=== PATIENT | male | born 1965 | race African-American/Black ===

== ENCOUNTER 2016-09-18 00:41 | Inpatient (IN) ==
--- NOTE | 2016-09-18 01:29 | Emergency Department Note ---
ILucie Emily, am scribing for, and in the presence of, Re Schmidt DO 01:27. IBrayan Debra, DO, personally performed the services described in this documentation, ascribed by Inga Faulkner in my presence, and it is both accurate and complete . Arrival - Arrival Chief Complaint: Upper Respiratory Stated Complaint: sob ED Nursing Triage Note: PT STATES HE CAN HARDLY BREATH WITH CHEST CONGESTION AND COUGHING UP BLOOD-TINGED MUCOUS. HAS TAKEN MUCINEX AND DENISE SELTZER WITH NO RELIEF. UNABLE TO KEEP FOOD DOWN Mode of Arrival: Ambulatory Limitations: No Limitations Source: Patient - History of Present Illness HPI Narrative: Pt is a 51 y/o male who came to ED with c/o chest congestion, cough, SOB that started 3 days ago. Pt notes he had same sxs last week but "broke over the weekend" and started back this week. Pt reports he works at [employer] in [place], [place]. Pt's BP in ED is 201/129, in which he is HTN and is compliant with medication. No other complaint/pain in ED. Onset (ago): day(s) Consistency: constant Severity: mild, moderate Severity scale (1-10): 5 Quality: aching Allergies/Adverse Reactions: Allergies Allergy/AdvReac Type Severity Reaction Status Date / Time No Known Allergies Allergy Unverified 10/14/15 05:05 Home Medications: Home Medications Medication Instructions Recorded Confirmed Type Aspirin Tab 325 mg PO DAILY tablet 10/22/15 Rx Carvedilol [Coreg] 25 mg PO BID W/MEALS #60 tablet 10/22/15 Rx Furosemide Tab [Lasix Tab] 40 mg PO BID DIURETIC #60 tablet 10/22/15 Rx Insulin NPH/Regular 70/30 [HumuLIN 15 unit SUBCUT BID W/MEALS #100 ml 10/22/15 Rx 70/30] Potassium Chloride Cap/Tab [K Dur] 20 meq PO BID #60 tablet 10/22/15 Rx acetaZOLAMIDE TAB [Diamox Tab] 250 mg PO BID #10 tablet 10/22/15 Rx hydrALAZINE TAB [Apresoline Tab] 25 mg PO BID #60 tablet 10/22/15 Rx Review of System - Review of System 12 point system: reviewed and no additional remarkable complaints except as stated - Review of System Constitutional: Absent: chills, fever Head/Ears/Nose/Throat: Present: nasal drainage, sore throat Respiratory: Present: cough, respiratory distress Cardiovascular: Absent: chest pain (chest congestion) Gastrointestinal: Absent: abdominal pain, nausea, vomiting Musculoskeletal: Absent: arm pain, back pain, neck pain Skin: Absent: rash Neurological: Absent: headache Psychiatric: Absent: anxiety Medical,Surgical,& Family Hx - Medical History Cardio: History of: CHF (EF 25-30% (11/10/12)), CAD, Hypertension Endocrine: History of: Diabetes Mellitus (IDDM) Gastrointestinal: History of: Hepatitis (C) - Surgical History Abdominal Surgeries: Surgical HX of: Abdominal Surgery (pancreatic pseudocyst removed), Appendectomy - Family History Family History: Reports;: Family Diabetes, Family Hypertension - Social History Smoking Status: Never smoker Frequency of Alcohol Use: None Type of Drug Use: None Exam Vital Signs: Vital Signs Temperature 99.8 F H 09/18/16 00:49 Pulse Rate 104 H 09/18/16 02:42 Respiratory Rate 19 09/18/16 02:42 Blood Pressure 198/127 09/18/16 00:49 O2 Sat by Pulse Oximetry 100 09/18/16 02:42 - General General appearance: alert, in no apparent distress - Head Head exam: Present: atraumatic, normocephalic - Eye Eye exam: Present: PERRL, EOMI - ENT ENT exam: Present: mucous membranes moist, TM's normal bilaterally. Absent: normal oropharynx (erythematous), mucous membranes dry - Neck Neck exam: Present: full ROM. Absent: tenderness - Chest Chest inspection: Present: symmetric chest wall rise. Absent: tenderness - Respiratory Respiratory exam: Present: rales, wheezes (mild expiratory on right). Absent: normal lung sounds bilaterally - Cardiovascular Cardiovascular exam: Present: regular rate, normal rhythm, normal heart sounds - Abdominal Exam Abdominal exam: Present: soft. Absent: distention, tenderness - Extremities Exam Extremities exam: Present: full ROM. Absent: tenderness, pedal edema - Neurological Exam Neurological exam: Present: alert, oriented X3, CN II-XII intact. Absent: motor sensory deficit - Psychiatric Psychiatric exam: Present: normal affect, normal mood - Skin Skin exam: Present: warm, dry Course Course Narrative: pt will be admitted to DR Manzano. at this time pt is stable , no complaints of chest pain, received asa and 80 lasix. o2 sat without oxygen was 93, now with 2 l is 98% Results - Labs CBC & BMP: 09/18/16 02:04 09/18/16 02:04 Lab Results: I have reviewed the patients labs Labs: Laboratory Tests 09/18/16 09/18/16 09/18/16 02:04 02:04 02:04 Hgb 13.6 L Hct 41.3 L Plt Count 84 L Lymph % (Auto) 14.7 L Long % (Auto) 18.3 H Long # (Auto) 1.8 H Anion Gap 18.9 H BUN 27 H Creatinine 2.20 H Glucose 383 H Calcium 8.2 L Total Bilirubin 1.60 H AST 40 H Total Creatine Kinase 994 H Troponin I 0.220 H B-Natriuretic Peptide 1652 H Albumin 2.9 L Globulin 5.1 H Albumin/Globulin Ratio 0.5 L Microbiology 09/18/16 03:43 Nasal Aspirate Influenza Types A,B Antigen (SANTOSH) - Final Negative for Influenza A Ag Negative for Influenza B Ag - EKG EKG results: interpreted by ERMD, WNL, sinus rhythm - Diagnostic Findings Procedure: Chest x-ray: report reviewed by me (increased pulmonary vasculature) Disposition Clinical Impression: CHF (congestive heart failure), Elevation of cardiac enzymes Case discussed with: patient Disposition: Still a Patient Condition: Stable Time of Disposition: 04:57
[2016-09-18] MEDS ORDERED: ALBUTEROL/IPRATROPIUM 3 ML NEB RESP TX STA (02:31)
[2016-09-18] MEDS ORDERED: cefTRIAXone 1,000 MG in SODIUM CHLORIDE 0.9% 100 ML IV STA (02:31)
[2016-09-18] MEDS ORDERED: cefTRIAXone 1,000 MG VIAL ONE (02:32)
[2016-09-18 02:38] LABS: Alanine Aminotransferase 22 U/L (16-61); Albumin 2.9 G/DL (3.4-5.0); Alkaline Phosphatase 66 U/L (45-117); Aspartate Amino Transferase 40 U/L (0-37); Blood Urea Nitrogen 27 MG/DL (7-18); Calcium 8.2 MG/DL (8.5-10.1); Glucose 383 MG/DL (74-106); Osmolality,Calculated 295.7 MOS/KG (273-304); Potassium 4.9 MMOL/L (3.5-5.1); Sodium 138 MMOL/L (136-145)
[2016-09-18 02:50] LABS: Basophils % 0.4 % (0.0-0.8); Eosinophils % 0.1 % (0.00-10.9); Hematocrit 41.3 VOL% (42.0-52.0); Hemoglobin 13.6 GM/DL (14.0-18.0); Immature Granulocytes % 0.4 %; Immature Granulocytes Absolute 0.04 #; Lymphocytes # 1.4 10*3/uL (1.4-4.0); Lymphocytes % 14.7 % (21.2-54.2); Mean Corpuscular HGB Conc 32.9 GM/DL (32-36); Mean Corpuscular Hemoglobin 32 PG (27-34); Mean Corpuscular Volume 97.9 FL (87-102); Mean Platelet Volume 11.9 FL (9.6-12.0); Monocytes # 1.8 10*3/uL (0.11-0.8); Monocytes % 18.3 % (1.7-12.7); Neutrophils # 6.3 10*3/uL (1.4-7.4); Neutrophils % 66.1 % (38.7-73.9); Platelet Count 84 10*3/uL (130-400); Red Blood Count 4.22 10*6/uL (3.8-5.5); Red Cell Distribution Width 12.4 % (9.3-17.3); White Blood Count 9.6 10*3/uL (4.5-13.71)
[2016-09-18] MEDS ORDERED: cloNIDine 0.1 MG TABLET ONE (03:14)
[2016-09-18] MEDS ORDERED: cloNIDine 0.1 MG TABLET PO STA (03:14)
[2016-09-18] MEDS ORDERED: ASPIRIN 325 MG TABLET PO STA (03:39)
[2016-09-18] MEDS ORDERED: ASPIRIN 325 MG TABLET ONE (03:39)
[2016-09-18] MEDS ORDERED: FUROSEMIDE 40 MG/4 ML VIAL IV STA (04:13)
[2016-09-18] MEDS ORDERED: FUROSEMIDE 40 MG/4 ML VIAL ONE (04:32)
--- NOTE | 2016-09-18 06:53 | Hospitalist History & Physical ---
Assessment and Plan (1) Acute on chronic diastolic CHF (congestive heart failure) Status: Acute Assessment and plan: The patient's mental the hospital with shortness of breath due to pulmonary edema. We will continue the patient's usual heart failure regimen and give intravenous Lasix 100 mg twice daily. We will recheck kidney function tomorrow. Anticipated length of stay 48 hours Current Visit: Yes (2) Dyspnea Status: Acute Current Visit: No (3) Essential (primary) hypertension Status: Acute Current Visit: No History of Present Illness Chief complaint: shortness of breath and cough History of present illness: Mr. Howell is a 51 year old male with history of diastolic congestive heart failure due to untreated essential hypertension. The patient has hypertensive nephrosclerosis with baseline creatinine 2.2. The patient presents to the emergency room this morning with complaint of cough and shortness of breath. The patient's chest x-ray is consistent with pulmonary edema. The patient denies fever, chills, dysuria, palpitations. The patient's symptoms are moderate, continuous, and worsening. The patient is admitted to hospital for treatment of diastolic acute on chronic congestive heart failure. Home Medications Medication Instructions Recorded Confirmed Type Aspirin Tab 325 mg PO DAILY tablet 10/22/15 Rx Carvedilol [Coreg] 25 mg PO BID W/MEALS #60 tablet 10/22/15 Rx Furosemide Tab [Lasix Tab] 40 mg PO BID DIURETIC #60 tablet 10/22/15 Rx Insulin NPH/Regular 70/30 [HumuLIN 15 unit SUBCUT BID W/MEALS #100 ml 10/22/15 Rx 70/30] Potassium Chloride Cap/Tab [K Dur] 20 meq PO BID #60 tablet 10/22/15 Rx acetaZOLAMIDE TAB [Diamox Tab] 250 mg PO BID #10 tablet 10/22/15 Rx hydrALAZINE TAB [Apresoline Tab] 25 mg PO BID #60 tablet 10/22/15 Rx Allergies Allergy/AdvReac Type Severity Reaction Status Date / Time No Known Allergies Allergy Unverified 10/14/15 05:05 Medical,Surgical,& Family Hx - Medical History Cardio: History of: CHF (EF 25-30% (11/10/12)), CAD, Hypertension Endocrine: History of: Diabetes Mellitus (NIDDM) Renal: History of: Renal Failure Gastrointestinal: History of: Hepatitis (C) - Surgical History Abdominal Surgeries: Surgical HX of: Abdominal Surgery (pancreatic pseudocyst removed), Appendectomy - Family History Family History: Reports;: Family Diabetes, Family Hypertension - Social History Smoking Status: Never smoker Frequency of Alcohol Use: None Type of Drug Use: None Marital Status: Single Functional capacity: independent ambulation 12 point system: reviewed and no additional remarkable complaints except as stated Exam - Constitutional Exam: Constitutional System: Mild distress. No tremulousness. Head: Normocephalic, atraumatic. Ears, Nose and Throat System: No evidence of Otitis or Mastoiditis. No epistaxis or discharge Eyes System: Pupils equal, round, and reactive. Extraocular muscles intact. Neck: Supple, without adenopathy, 1+ jugular venous distention. No thyromegaly , neck mass, or prior surgery apparent. Respiratory System: Chest rales in bases to auscultation. Cardiovascular System: Heart with regular rate and rhythm. S4 murmur. GI System: Abdomen soft, nontender. Normoactive bowel sounds present. Musculoskeletal System: limbs with 1+ pedal edema. Full distal pulses. Neurological System: No discernable sensory deficit. No aphasia Psychiatric System: Conversation is rational Results - Labs CBC & BMP: 09/18/16 02:04 09/18/16 02:04 Lab Results: I have reviewed the past 24 hour labs
[2016-09-18 06:55] LABS: Total Cells Counted 0
[2016-09-18] MEDS ORDERED: ACETAMINOPHEN 325 MG TABLET PO PRN (06:55)
[2016-09-18] MEDS ORDERED: ONDANSETRON 4 MG/2 ML VIAL IV PRN (06:55)
[2016-09-18] MEDS ORDERED: DEXTROSE 50% 25 GM/50 ML VIAL IV PRN (06:55)
[2016-09-18] MEDS ORDERED: GLUCAGON 1 MG VIAL IM PRN (06:55)
[2016-09-18] MEDS ORDERED: PNEUMOCOCCAL VACCINE (23 VALENT) 0.5 ML VIAL IM ONE (07:02)
[2016-09-18] MEDS: PANTOPRAZOLE 40 MG TABLET PO SCH (08:32)
[2016-09-18] MEDS: CARVEDILOL 25 MG TABLET PO SCH ×2 (08:32→17:06)
[2016-09-18] MEDS: POTASSIUM CHLORIDE 20 MEQ TABLET PO SCH ×2 (08:32→21:36)
[2016-09-18] MEDS: INSULIN NPH/REGULAR 70/30 100 UNIT/ML SUBCUT SCH ×2 (08:33→17:28)
[2016-09-18] MEDS: hydrALAZINE 25 MG TABLET PO SCH ×2 (08:33→21:36)
[2016-09-18] MEDS: ENOXAPARIN 30 MG/0.3 ML SYRINGE SUBCUT SCH (08:33)
[2016-09-18] MEDS: FUROSEMIDE 100 MG/10 ML VIAL IV SCH ×2 (08:34→16:55)
[2016-09-18] MEDS: INSULIN LISPRO 100 UNIT/ML SUBCUT SCH ×4 (08:34→21:35)
[2016-09-18] MEDS: acetaZOLAMIDE 250 MG TABLET PO SCH ×2 (08:38→21:41)
[2016-09-18] MEDS: ASPIRIN 325 MG TABLET PO SCH (08:59)
--- NOTE | 2016-09-18 10:48 | XRay Report ---
History short of breath Comparison 10/14/2015 The heart is enlarged with chronic vascular prominence There is a mild diffuse bilateral interstitial prominence to the which is less pronounced than on the prior study. No consolidative infiltrates are seen. Impression: Mild interstitial edema PROCEDURE INTERPRETED AT [facility] DEPARTMENT OF RADIOLOGY Final Report Signed by: Dr. Betty Toure
--- NOTE | 2016-09-18 11:23 | EKG Report ---
Stationary ECG Study [facility] ER Test Date: 09/18/2016 4:14:53 AM Pat Name: RACHANA MURRAY Department: Room: 282 Gender: M Cook Dinner: : 1965 Requested by: Re Schmidt Order Number: [id number] Reading MD: ALEJANDRO BABB Intervals [place] Rate: 92 P: 83 SD: 152 QRS: -42 QRSD: 85 T: 50 QT: 376 QTc: 426 Interpretive Statements SINUS RHYTHM RIGHT ATRIAL ENLARGEMENT MARKED LEFT AXIS DEVIATION MINIMAL ST DEPRESSION Electronically Signed On 09-18-16 17:50:21 [employer] by ALEJANDRO BABB [email or web address]
[2016-09-18] MEDS: CIPROFLOXACIN 500 MG TABLET PO SCH (21:36)
[2016-09-19 05:08] LABS: Basophils % 0.3 % (0.0-0.8); Eosinophils # 0.1 10*3/uL (0.0-0.87); Eosinophils % 0.9 % (0.00-10.9); Hematocrit 40.1 VOL% (42.0-52.0); Immature Granulocytes % 0.4 %; Immature Granulocytes Absolute 0.03 #; Lymphocytes # 1.4 10*3/uL (1.4-4.0); Lymphocytes % 17.7 % (21.2-54.2); Mean Corpuscular HGB Conc 32.4 GM/DL (32-36); Mean Corpuscular Hemoglobin 32 PG (27-34); Mean Corpuscular Volume 97.8 FL (87-102); Mean Platelet Volume 11.8 FL (9.6-12.0); Monocytes % 25.3 % (1.7-12.7); Neutrophils # 4.4 10*3/uL (1.4-7.4); Neutrophils % 55.4 % (38.7-73.9); Red Cell Distribution Width 12.4 % (9.3-17.3); White Blood Count 7.9 10*3/uL (4.5-13.71)
[2016-09-19 05:11] LABS: Platelet Count 94 10*3/uL (130-400)
[2016-09-19 05:35] LABS: Band Neutrophils 2 % (0-10); Lymphocytes 22 % (20-55); Segmented Neutrophils 57 % (50-85); Total Cells Counted 100
[2016-09-19 05:36] LABS: Platelet Estimate Decreased
[2016-09-19 05:50] LABS: Calcium 7.6 MG/DL (8.5-10.1); Magnesium 2.3 MG/DL (1.8-2.4); Potassium 4.1 MMOL/L (3.5-5.1)
[2016-09-19 06:00] LABS: Troponin I Only 0.117 NG/ML (0.00-0.045)
[2016-09-19] MEDS: ENOXAPARIN 30 MG/0.3 ML SYRINGE SUBCUT SCH (06:52)
[2016-09-19] MEDS: CIPROFLOXACIN 500 MG TABLET PO SCH ×2 (08:24→20:25)
[2016-09-19] MEDS: ASPIRIN 325 MG TABLET PO SCH (08:24)
[2016-09-19] MEDS: POTASSIUM CHLORIDE 20 MEQ TABLET PO SCH ×2 (08:25→20:25)
[2016-09-19] MEDS: hydrALAZINE 25 MG TABLET PO SCH ×2 (08:25→20:25)
[2016-09-19] MEDS: PANTOPRAZOLE 40 MG TABLET PO SCH (08:25)
[2016-09-19] MEDS: CARVEDILOL 25 MG TABLET PO SCH ×2 (08:25→17:16)
[2016-09-19] MEDS: INSULIN NPH/REGULAR 70/30 100 UNIT/ML SUBCUT SCH ×2 (08:26→16:51)
[2016-09-19] MEDS: INSULIN LISPRO 100 UNIT/ML SUBCUT SCH ×4 (08:27→20:24)
[2016-09-19] MEDS: FUROSEMIDE 100 MG/10 ML VIAL IV SCH (08:28)
[2016-09-19] MEDS: acetaZOLAMIDE 250 MG TABLET PO SCH ×2 (08:37→20:25)
--- NOTE | 2016-09-19 14:04 | Hospitalist Progress Note ---
Assessment and Plan (1) Acute on chronic diastolic CHF (congestive heart failure) Status: Acute Assessment and plan: The patient's mental the hospital with shortness of breath due to pulmonary edema. We will continue the patient's usual heart failure regimen and give change intravenous Lasix to Lasix 80 mg oral twice daily. We will recheck kidney function tomorrow. Anticipate that he'll be able to be discharged home on Tuesday or Tuesday Current Visit: Yes (2) Dyspnea Status: Acute Current Visit: No (3) Essential (primary) hypertension Status: Acute Current Visit: No Hospitalist: Subjective Interval history: The patient developed some cough and fever last night. Cipro antibiotic pills were started. The patient has less shortness of breath and left lower extremity edema today. Exam - Constitutional Vitals: Period Temp Pulse Resp BP Sys/Campos Pulse Ox Last 24 Hr 97.7 F-101.5 F 62-80 18-20 109-145/68-86 97-99 Exam: Constitutional System: Minimal distress. No tremulousness. Head: Normocephalic, atraumatic. Ears, Nose and Throat System: No evidence of Otitis or Mastoiditis. No epistaxis or discharge Eyes System: Pupils equal, round, and reactive. Extraocular muscles intact. Neck: Supple, without adenopathy, 1+ jugular venous distention. No thyromegaly , neck mass, or prior surgery apparent. Respiratory System: Chest fever rales in bases to auscultation. Cardiovascular System: Heart with regular rate and rhythm. S4 murmur. GI System: Abdomen soft, nontender. Normoactive bowel sounds present. Musculoskeletal System: limbs with trace pedal edema. Full distal pulses. Neurological System: No discernable sensory deficit. No aphasia Psychiatric System: Conversation is rational Results - Labs CBC & BMP: 09/19/16 04:22 09/19/16 04:22 Lab Results: I have reviewed the past 24 hour labs
[2016-09-19] MEDS: FUROSEMIDE 80 MG TABLET PO SCH (16:50)
[2016-09-20 06:18] LABS: Calcium 7.8 MG/DL (8.5-10.1); Magnesium 2.4 MG/DL (1.8-2.4); Osmolality,Calculated 292.8 MOS/KG (273-304); Potassium 3.7 MMOL/L (3.5-5.1)
[2016-09-20] MEDS: ENOXAPARIN 30 MG/0.3 ML SYRINGE SUBCUT SCH (06:26)
[2016-09-20] MEDS: ASPIRIN 325 MG TABLET PO SCH (09:10)
[2016-09-20] MEDS: acetaZOLAMIDE 250 MG TABLET PO SCH ×2 (09:10→21:12)
[2016-09-20] MEDS: CIPROFLOXACIN 500 MG TABLET PO SCH (09:10)
[2016-09-20] MEDS: hydrALAZINE 25 MG TABLET PO SCH ×2 (09:10→21:05)
[2016-09-20] MEDS: POTASSIUM CHLORIDE 20 MEQ TABLET PO SCH ×2 (09:11→21:05)
[2016-09-20] MEDS: PANTOPRAZOLE 40 MG TABLET PO SCH (09:11)
[2016-09-20] MEDS: FUROSEMIDE 80 MG TABLET PO SCH ×2 (09:11→17:22)
[2016-09-20] MEDS: CARVEDILOL 25 MG TABLET PO SCH ×2 (09:11→17:22)
[2016-09-20] MEDS: INSULIN LISPRO 100 UNIT/ML SUBCUT SCH ×4 (09:12→21:05)
[2016-09-20] MEDS: INSULIN NPH/REGULAR 70/30 100 UNIT/ML SUBCUT SCH ×2 (09:12→17:22)
--- NOTE | 2016-09-20 11:23 | Hospitalist Progress Note ---
Assessment and Plan (1) Dyspnea Status: Acute Current Visit: No (2) CHF (congestive heart failure) Status: Acute Current Visit: Yes (3) Essential (primary) hypertension Status: Acute Current Visit: No (4) Noncompliance Status: Acute Current Visit: No (5) Insulin dependent diabetes mellitus Status: Chronic Assessment and plan: My plans for this patient will be to start him on scheduled breathing treatments and change up his Cipro to a stronger antibiotic. I told the patient was taken by a professor of musicology far as discharge planning Current Visit: No Hospitalist: Subjective Interval history: Patient's having symptoms of an upper respiratory infection Exam - Constitutional Vitals: Period Temp Pulse Resp BP Sys/Campos Pulse Ox Last 24 Hr 97.5 F-99.1 F 68-76 18-20 109-147/61-81 96-99 General appearance: normal weight - Head Head exam: Present: normal inspection - ENT ENT exam: Present: normal exam - Neck Neck exam: Present: normal inspection - Respiratory Respiratory exam: Present: rhonchi - Cardiovascular Cardiovascular exam: Present: regular rate and rhythm - GI/Abdominal GI/Abdominal exam: Present: normal bowel sounds - Extremities Exam Extremities exam: Present: normal inspection Results - Labs CBC & BMP: 09/19/16 04:22 09/20/16 05:06
[2016-09-20] MEDS: cefTRIAXone 1,000 MG in SODIUM CHLORIDE 0.9% 100 ML IV SCH (12:20)
[2016-09-20] MEDS: ALBUTEROL/IPRATROPIUM 3 ML NEB RESP TX SCH ×2 (13:35→19:51)
[2016-09-21] MEDS: ALBUTEROL/IPRATROPIUM 3 ML NEB RESP TX SCH ×4 (00:17→20:55)
[2016-09-21 04:44] LABS: Basophils % 0.3 % (0.0-0.8); Eosinophils # 0.1 10*3/uL (0.0-0.87); Eosinophils % 2.1 % (0.00-10.9); Hematocrit 39.8 VOL% (42.0-52.0); Hemoglobin 12.9 GM/DL (14.0-18.0); Immature Granulocytes % 0.3 %; Immature Granulocytes Absolute 0.02 #; Lymphocytes # 2.1 10*3/uL (1.4-4.0); Lymphocytes % 33.7 % (21.2-54.2); Mean Corpuscular HGB Conc 32.4 GM/DL (32-36); Mean Corpuscular Hemoglobin 31 PG (27-34); Mean Corpuscular Volume 95.2 FL (87-102); Mean Platelet Volume 11.6 FL (9.6-12.0); Monocytes # 1.1 10*3/uL (0.11-0.8); Monocytes % 17.8 % (1.7-12.7); Neutrophils # 2.8 10*3/uL (1.4-7.4); Neutrophils % 45.8 % (38.7-73.9); Platelet Count 118 10*3/uL (130-400); Red Blood Count 4.18 10*6/uL (3.8-5.5); Red Cell Distribution Width 12.7 % (9.3-17.3); White Blood Count 6.2 10*3/uL (4.5-13.71)
[2016-09-21 05:27] LABS: Calcium 8.1 MG/DL (8.5-10.1); Osmolality,Calculated 296.1 MOS/KG (273-304); Potassium 3.9 MMOL/L (3.5-5.1)
[2016-09-21 05:29] LABS: Eosinophils 2 % (0-10); Lymphocytes 40 % (20-55); Segmented Neutrophils 45 % (50-85)
[2016-09-21 05:30] LABS: Platelet Estimate Adequate
[2016-09-21 05:32] LABS: Total Cells Counted 100
[2016-09-21] MEDS: ENOXAPARIN 30 MG/0.3 ML SYRINGE SUBCUT SCH (06:58)
[2016-09-21] MEDS: INSULIN LISPRO 100 UNIT/ML SUBCUT SCH ×4 (08:33→20:51)
[2016-09-21] MEDS: ASPIRIN 325 MG TABLET PO SCH (08:34)
[2016-09-21] MEDS: CARVEDILOL 25 MG TABLET PO SCH ×2 (08:34→16:30)
[2016-09-21] MEDS: POTASSIUM CHLORIDE 20 MEQ TABLET PO SCH ×2 (08:34→20:51)
[2016-09-21] MEDS: acetaZOLAMIDE 250 MG TABLET PO SCH ×2 (08:34→20:51)
[2016-09-21] MEDS: FUROSEMIDE 80 MG TABLET PO SCH ×2 (08:35→16:30)
[2016-09-21] MEDS: hydrALAZINE 25 MG TABLET PO SCH ×2 (08:35→20:51)
[2016-09-21] MEDS: INSULIN NPH/REGULAR 70/30 100 UNIT/ML SUBCUT SCH ×2 (08:35→16:30)
[2016-09-21] MEDS: PANTOPRAZOLE 40 MG TABLET PO SCH (08:35)
[2016-09-21] MEDS ORDERED: methylPREDNISolone SOD SUC 125 MG/2 ML VIAL IV ONE (11:16)
--- NOTE | 2016-09-21 11:19 | Hospitalist Progress Note ---
Assessment and Plan (1) Dyspnea Status: Acute Current Visit: No (2) CHF (congestive heart failure) Status: Acute Current Visit: Yes (3) Essential (primary) hypertension Status: Acute Current Visit: No (4) Noncompliance Status: Acute Current Visit: No (5) Insulin dependent diabetes mellitus Status: Chronic Assessment and plan: My plans for this patient will be to start him on scheduled breathing treatments and change up his Cipro to a stronger antibiotic. 09/21/16 overall the patient does seem to be improving. I do think it benefit from a dose of steroids. Can order chest x-ray. Seems to be moving decent amount of air. Should be to home tomorrow. Current Visit: No Hospitalist: Subjective Interval history: he still having some shortness of breath and congestion. Exam - Constitutional Vitals: Period Temp Pulse Resp BP Sys/Campos Pulse Ox Last 24 Hr 97.0 F-98.6 F 61-90 16-21 100-158/68-96 98-100 General appearance: normal weight - Head Head exam: Present: normal inspection - ENT ENT exam: Present: normal exam - Neck Neck exam: Present: normal inspection - Respiratory Respiratory exam: Present: rhonchi - Cardiovascular Cardiovascular exam: Present: regular rate and rhythm - GI/Abdominal GI/Abdominal exam: Present: normal bowel sounds - Extremities Exam Extremities exam: Present: normal inspection Results - Labs CBC & BMP: 09/21/16 03:56 09/21/16 03:56
[2016-09-21] MEDS: cefTRIAXone 1,000 MG in SODIUM CHLORIDE 0.9% 100 ML IV SCH (12:10)
--- NOTE | 2016-09-21 13:02 | XRay Report ---
XR chest 1V Indication: Shortness of breath and cough. Chest one view: Comparison 09/18/16. Normal heart size and mediastinal contour are again shown. There is continued diffuse parabronchial thickening present without focal infiltrate. Pleural spaces are clear. Impression: Persistent airways disease such as bronchitis or viral syndrome. No focal pneumonia. PROCEDURE INTERPRETED AT [facility] [place] DEPARTMENT OF RADIOLOGY Final Report Signed by: Jaiden Arias M.D.
[2016-09-21] MEDS ORDERED: hydrALAZINE 25 MG TABLET PO ONE (23:33)
[2016-09-22] MEDS: ALBUTEROL/IPRATROPIUM 3 ML NEB RESP TX SCH ×2 (01:58→08:54)
[2016-09-22] MEDS: ENOXAPARIN 30 MG/0.3 ML SYRINGE SUBCUT SCH (06:02)
[2016-09-22 08:16] VITALS: BP 180/97
[2016-09-22] MEDS: hydrALAZINE 25 MG TABLET PO SCH (09:20)
[2016-09-22] MEDS: ASPIRIN 325 MG TABLET PO SCH (09:20)
[2016-09-22] MEDS: PANTOPRAZOLE 40 MG TABLET PO SCH (09:20)
[2016-09-22] MEDS: acetaZOLAMIDE 250 MG TABLET PO SCH (09:21)
[2016-09-22] MEDS: FUROSEMIDE 80 MG TABLET PO SCH (09:21)
[2016-09-22] MEDS: POTASSIUM CHLORIDE 20 MEQ TABLET PO SCH (09:21)
[2016-09-22] MEDS: INSULIN LISPRO 100 UNIT/ML SUBCUT SCH ×2 (09:21→14:15)
[2016-09-22] MEDS: CARVEDILOL 25 MG TABLET PO SCH (09:21)
[2016-09-22] MEDS: INSULIN NPH/REGULAR 70/30 100 UNIT/ML SUBCUT SCH (09:22)
--- NOTE | 2016-09-22 10:19 | Physician Query Form ---
CLICK EDIT DOCUMENT TO SELECT QUERY ANSWER --> OK --> SIGN PROVIDERS: Make your selection(s) from the choices in EACH section by typing an "x" and enter comments in the comment section. Please use your independent medical judgment in providing your response. This request does not imply that any particular answer is desired or expected. CLINICAL INDICATORS: (Providers should not edit this section) "The patient has hypertensive nephrosclerosis with baseline creatinine 2.2" ---- ----GFR has been between 38---44 Clarify which of the following most accurately represents the patient's renal status: ( ) Acute kidney injury (non-traumatic) ( ) Acute renal failure (x ) Acute renal failure with underlying Chronic Kidney Disease (CKD stage 3) - please provide stage below ( ) Acute renal failure with pathological renal lesion ( ) Acute renal failure with necrosis ( ) tubular ( ) medullary ( ) cortical ( ) CKD - please provide stage below ( ) End Stage Renal Disease ( ) Acute interstitial nephritis ( ) Hepatorenal syndrome ( ) Other, please specify: ( ) Clinically unable to determine Chronic Kidney Disease Stages Source: National Kidney Disease Foundation ( ) Stage I (eGFR > or = 90) ( ) Stage II (eGFR 60 - 89) ( ) Stage III (eGFR 30 - 59) ( ) Stage IV (eGFR 15 - 29) ( ) Stage V (eGFR < 15 or dialysis) COMMENTS: Use of terms such as suspected, likely, or probable (associated with a specific diagnosis that is being evaluated, monitored, or treated as if it exists) are acceptable and can be restated in the discharge summary if not ruled out. MTDD
--- NOTE | 2016-09-22 10:51 | Discharge Summary ---
Hospital Course - Hospital Course Hospital Course: Mr. Howell is a 51 year old male with history of diastolic congestive heart failure due to untreated essential hypertension. The patient has hypertensive nephrosclerosis with baseline creatinine 2.2. The patient presents to the emergency room this morning with complaint of cough and shortness of breath. The patient's chest x-ray is consistent with pulmonary edema. The patient denies fever, chills, dysuria, palpitations. The patient's symptoms are moderate, continuous, and worsening. The patient is admitted to hospital for treatment of diastolic acute on chronic congestive heart failure. We put him on his home medications had to make some adjustments. Treated a bronchitis. He is moving better air today still has a little congestion in his lung sounds. His chest x-ray is clear. He is made his maximum benefit from this hospitalization we are discharging him home. Patient's requesting help obtaining a outpatient follow-up with Dr. Pond. This is to Dr. Zhang recommended that he follow up with - Time spent with patient Time with patient DS: Greater than 30 minutes Diagnosis - Discharge Diagnosis (1) Dyspnea Status: Acute (2) CHF (congestive heart failure) Status: Acute (3) Essential (primary) hypertension Status: Acute (4) Noncompliance Status: Acute (5) Insulin dependent diabetes mellitus Status: Chronic Discharge Plan - Discharge Data Disposition: Disch To Home/Self Care Condition at Discharge: Stable Discharge Diet: diabetic diet - Discharge Medications New Amoxicillin/Clav Tab [Augmentin Tab] 875 mg PO Q12H #10 tablet Carvedilol [Coreg] 25 mg PO BID W/MEALS #60 tablet acetaZOLAMIDE TAB [Diamox Tab] 250 mg PO BID #60 tablet methylPREDNISolone DOSEPAK [Medrol Dosepak] 4 mg PO DIRECTED #1 pack Continue hydrALAZINE TAB [Apresoline Tab] 25 mg PO BID #60 tablet Aspirin Tab 325 mg PO DAILY tablet Potassium Chloride 20 meq PO BID Furosemide Tab [Lasix Tab] 80 mg PO BID DIURETIC Multivitamin (Centrum) [Centrum Tab] 1 tablet PO DAILY Insulin NPH/Regular 70/30 [HumuLIN 70/30] 10 units SUBCUT AC SUPPER Insulin NPH/Regular 70/30 [HumuLIN 70/30] 15 units SUBCUT AC BREAKFAST Discontinued Carvedilol [Coreg] 12.5 mg PO BID - Follow Up or Referral Follow Up: Felice Terrazas DO [Physician] - 2 Weeks - Forms/Instructions Exam - Constitutional Vitals: Period Temp Pulse Resp BP Sys/Campos Pulse Ox Last 24 Hr 97 F-98.4 F 58-87 18-20 132-180/78-100 96-100 General appearance: normal weight - Head Head exam: Present: normal inspection - ENT ENT exam: Present: normal exam - Neck Neck exam: Present: normal inspection - Respiratory Respiratory exam: Present: rhonchi - Cardiovascular Cardiovascular exam: Present: regular rate and rhythm - GI/Abdominal GI/Abdominal exam: Present: normal bowel sounds - Extremities Exam Extremities exam: Present: normal inspection Discharge Results Labs on day of discharge: Labs from last 24 hours 09/22/16 09/21/16 09/21/16 07:51 20:38 16:20 POC Glucose 303 H 165 H 101 09/21/16 11:42 POC Glucose 332 H DS: Provider Date of admission: 09/18/16 05:23 Primary care physician: . No PCP Attending physician on admission: Alton Manzano MD Consults: 09/18/16 07:13 Consult to Pastoral Services [CONS] Routine Comment: Pastoral Screen: Request Chute Tapper Visit Pastoral Screen Source of Request: Patient Discharging clinician: Jaiden Mccarthy MD
[2016-09-22] MEDS: cefTRIAXone 1,000 MG in SODIUM CHLORIDE 0.9% 100 ML IV SCH (14:15)
== END 2016-09-22 13:08 | disposition home or self-care (01) | DRG 291 ==
LOC: N.ED 00:41 → N.EDINP 05:22 → SUATTDRO 05:22 → N.TELEN 06:02
PROVIDERS: ADMIT Internal Medicine; ATTEND Internal Medicine

== ENCOUNTER 2020-09-13 11:56 | Inpatient (IN) ==
[2020-09-13] MEDS ORDERED: FUROSEMIDE 40 MG/4 ML VIAL IV STA (13:37)
[2020-09-13] MEDS ORDERED: ASPIRIN 325 MG TABLET PO STA (13:37)
[2020-09-13 13:47] LABS: Basophils % 0.4 % (0.0-0.8); Eosinophils % 0.2 % (0.00-10.9); Hematocrit 38.1 VOL% (42.0-52.0); Hemoglobin 12.2 GM/DL (14.0-18.0); Immature Granulocytes % 0.4 %; Immature Granulocytes Absolute 0.03 #; Lymphocytes # 1.4 10*3/uL (1.4-4.0); Lymphocytes % 16.8 % (21.2-54.2); Mean Corpuscular Volume 97.9 FL (87-102); Mean Platelet Volume 11.1 FL (9.6-12.0); Monocytes % 14.7 % (1.7-12.7); Neutrophils % 67.5 % (38.7-73.9); Platelet Count 209 T/CUMM (130-400); Red Blood Count 3.89 MC/CUMM (3.8-5.5); Red Cell Distribution Width 12.9 % (9.3-17.3); White Blood Count 8.3 T/CUMM (4-12)
[2020-09-13] MEDS ORDERED: FUROSEMIDE 100 MG/10 ML VIAL IV STA (13:47)
[2020-09-13 13:54] LABS: INR 1.2
[2020-09-13 14:22] LABS: Albumin 2.8 G/DL (3.4-5.0); Bilirubin,Total 1.4 MG/DL (0.2-1.0); Calcium 7.7 MG/DL (8.5-10.1); Osmolality,Calculated 287.1 MOS/KG (273-304); Total Protein 8.5 G/DL (6.4-8.3)
[2020-09-13] MEDS ORDERED: ENOXAPARIN 100 MG/ML SYRINGE SUBCUT STA (14:26)
[2020-09-13] MEDS ORDERED: NITROGLYCERIN 2% OINT 1 INCH/GM PACK TOP STA (14:26)
[2020-09-13] MEDS ORDERED: ALBUTEROL 2.5 MG/3 ML NEB RESP TX PRN (15:51)
[2020-09-13] MEDS ORDERED: FUROSEMIDE 40 MG/4 ML VIAL IV SCH ×2 (16:00→16:48)
[2020-09-13 16:15] LABS: ABG Base Excess 1.9 MMOL/L (-2.5-2.5); ABG HCO3 25.8 MMOL/L (20-26); ABG Oxygen Saturation 86.1 % (95-100); ABG PCO2 35.1 MM HG (35-48); ABG PH 7.465 (7.35-7.45); ABG PO2 52.2 MM HG (80-95); ABG TCO2 22.6 MMOL/L (23-27)
[2020-09-13 17:06] LABS: Hepatitis B Core IgM Quant 0.09 Index; Hepatitis B Surface Ag Quant > 1000.00 Index; Hepatitis B Surface Ag Result Positive (Negative); Hepatitis C Virus Ab Quant < 0.02 Index; Hepatitis C Virus Ab Result Negative (Negative)
[2020-09-13] MEDS: cefTRIAXone 1,000 MG in SYRINGE 1 EACH IV SCH (17:10)
[2020-09-13] MEDS: HEPARIN 5,000 UNIT/1 ML VIAL SUBCUT SCH ×2 (17:10→23:52)
[2020-09-13] MEDS: AZITHROMYCIN INJ 500 MG in SODIUM CHLORIDE 0.9% 250 ML IV SCH (18:00)
[2020-09-13 18:28] LABS: Barbiturates Screen,Urine Negative (Negative); Benzodiazepines Screen,Urine Negative (Negative); Cannabinoid Screen,Urine Negative (Negative); Opiate Screen,Urine Negative (Negative); Phencyclidine Screen,Urine Negative (Negative)
[2020-09-13] MEDS: ALBUTEROL/IPRATROPIUM 3 ML NEB RESP TX SCH (19:19)
[2020-09-13] MEDS ORDERED: prednisoLONE ACETATE 1% OPH SUSP 5 ML BOTTLE RIGHT EYE SCH (21:00)
[2020-09-13] MEDS ORDERED: acetaZOLAMIDE 250 MG TABLET PO SCH (21:00)
[2020-09-13] MEDS ORDERED: LATANOPROST 0.005% OPH SOLN 2.5 ML BOTTLE BOTH EYES SCH (21:00)
[2020-09-13] MEDS: BENZONATATE 100 MG CAPSULE PO SCH (21:29)
[2020-09-13] MEDS: LATANOPROST 0.005% OPH SOLN 2.5 ML BOTTLE BOTH EYES SCH (21:29)
[2020-09-13] MEDS: prednisoLONE ACETATE 1% OPH SUSP 5 ML BOTTLE RIGHT EYE SCH (21:29)
[2020-09-13 22:04] LABS: ABG Base Excess 0.9 MMOL/L (-2.5-2.5); ABG Oxygen Saturation 82.8 % (95-100); ABG PCO2 32.4 MM HG (35-48); ABG PH 7.477 (7.35-7.45); ABG PO2 47.9 MM HG (80-95); ABG TCO2 21.6 MMOL/L (23-27)
[2020-09-14] MEDS: ALBUTEROL/IPRATROPIUM 3 ML NEB RESP TX SCH ×4 (01:02→20:03)
[2020-09-14 05:39] LABS: Basophils % 0.3 % (0.0-0.8); Eosinophils % 0.2 % (0.00-10.9); Hematocrit 35.9 VOL% (42.0-52.0); Hemoglobin 11.6 GM/DL (14.0-18.0); Immature Granulocytes % 0.3 %; Immature Granulocytes Absolute 0.03 #; Lymphocytes # 1.1 10*3/uL (1.4-4.0); Lymphocytes % 10.4 % (21.2-54.2); Mean Corpuscular HGB Conc 32.3 GM/DL (32-36); Mean Platelet Volume 10.7 FL (9.6-12.0); Monocytes % 12.1 % (1.7-12.7); Neutrophils % 76.7 % (38.7-73.9); Platelet Count 242 T/CUMM (130-400); Red Cell Distribution Width 12.9 % (9.3-17.3); White Blood Count 10.1 T/CUMM (4-12)
[2020-09-14 06:08] LABS: Albumin 2.2 G/DL (3.4-5.0); Bilirubin,Total 1.3 MG/DL (0.2-1.0); Osmolality,Calculated 287.2 MOS/KG (273-304); Total Protein 8.4 G/DL (6.4-8.3)
[2020-09-14 06:58] LABS: ABG Base Excess -2.1 MMOL/L (-2.5-2.5); ABG HCO3 22.5 MMOL/L (20-26); ABG Oxygen Saturation 89.3 % (95-100); ABG PH 7.473 (7.35-7.45); ABG PO2 56.5 MM HG (80-95); ABG TCO2 18.3 MMOL/L (23-27)
[2020-09-14] MEDS ORDERED: NIFEDIPINE 30 MG PO SCH (09:00)
[2020-09-14] MEDS ORDERED: NON-FORMULARY MEDICATION (Cyanocobalamin (Vitamin B-12) [Vitamin B-12] 1,000 MCG tablet) PO SCH (09:00)
[2020-09-14] MEDS: ACETAMINOPHEN 325 MG TABLET PO PRN ×2 (09:17→21:00)
[2020-09-14] MEDS: BENZONATATE 100 MG CAPSULE PO SCH ×3 (09:17→21:26)
[2020-09-14] MEDS: metOLazone 5 MG TABLET PO SCH (09:17)
[2020-09-14] MEDS: MULTIVITAMIN (CENTRUM) TABLET PO SCH (09:18)
[2020-09-14] MEDS: carvediloL 3.125 MG TABLET PO SCH ×2 (09:29→21:26)
[2020-09-14] MEDS: prednisoLONE ACETATE 1% OPH SUSP 5 ML BOTTLE RIGHT EYE SCH ×2 (09:29→21:26)
[2020-09-14] MEDS: HEPARIN 5,000 UNIT/1 ML VIAL SUBCUT SCH ×2 (09:30→17:55)
[2020-09-14] MEDS ORDERED: ACETAMINOPHEN 650 MG SUPP RECTAL ONE (09:48)
[2020-09-14 10:24] LABS: ABG Base Excess -2.5 MMOL/L (-2.5-2.5); ABG HCO3 22.3 MMOL/L (20-26); ABG Oxygen Saturation 98.9 % (95-100); ABG PCO2 29.3 MM HG (35-48); ABG PH 7.452 (7.35-7.45); ABG TCO2 18.5 MMOL/L (23-27)
[2020-09-14] MEDS: VANCOMYCIN INJ 1,250 MG in SODIUM CHLORIDE 0.9% 250 ML IV SCH (13:51)
[2020-09-14] MEDS: FUROSEMIDE 40 MG/4 ML VIAL IV SCH (17:50)
[2020-09-14] MEDS: cefTRIAXone 1,000 MG in SYRINGE 1 EACH IV SCH (17:50)
[2020-09-14] MEDS: AZITHROMYCIN INJ 500 MG in SODIUM CHLORIDE 0.9% 250 ML IV SCH (17:51)
[2020-09-14] MEDS ORDERED: INSULIN LISPRO 100 UNIT/ML ONE (19:14)
[2020-09-14] MEDS: INSULIN LISPRO 100 UNIT/ML SUBCUT SCH ×2 (19:17→22:00)
[2020-09-14] MEDS: LATANOPROST 0.005% OPH SOLN 2.5 ML BOTTLE BOTH EYES SCH (21:26)
[2020-09-15] MEDS: HEPARIN 5,000 UNIT/1 ML VIAL SUBCUT SCH ×3 (01:47→16:55)
[2020-09-15] MEDS: ALBUTEROL/IPRATROPIUM 3 ML NEB RESP TX SCH ×4 (02:26→19:06)
[2020-09-15 07:01] LABS: Calcium 7.7 MG/DL (8.5-10.1); Osmolality,Calculated 286.5 MOS/KG (273-304)
[2020-09-15] MEDS: FUROSEMIDE 40 MG/4 ML VIAL IV SCH ×2 (08:52→16:48)
[2020-09-15] MEDS: INSULIN LISPRO 100 UNIT/ML SUBCUT SCH ×4 (08:55→22:37)
[2020-09-15] MEDS: prednisoLONE ACETATE 1% OPH SUSP 5 ML BOTTLE RIGHT EYE SCH ×2 (08:58→23:47)
[2020-09-15] MEDS: carvediloL 3.125 MG TABLET PO SCH ×2 (09:00→22:35)
[2020-09-15] MEDS: MULTIVITAMIN (CENTRUM) TABLET PO SCH (09:00)
[2020-09-15] MEDS: BENZONATATE 100 MG CAPSULE PO SCH ×3 (09:00→22:35)
[2020-09-15] MEDS: metOLazone 5 MG TABLET PO SCH (09:00)
[2020-09-15 09:36] LABS: Risk Ratio 4.93; VLDL CHOLESTEROL 16.8 MG/DL
[2020-09-15] MEDS: VANCOMYCIN INJ 1,250 MG in SODIUM CHLORIDE 0.9% 250 ML IV SCH (12:36)
[2020-09-15] MEDS: cefTRIAXone 1,000 MG in SYRINGE 1 EACH IV SCH (16:50)
[2020-09-15] MEDS: ACETAMINOPHEN 325 MG TABLET PO PRN ×2 (17:17→22:35)
[2020-09-15] MEDS: MEROPENEM 500 MG in SODIUM CHLORIDE 0.9% 100 ML IV SCH (21:37)
[2020-09-15] MEDS: ENOXAPARIN 40 MG/0.4 ML SYRINGE SUBCUT SCH (22:36)
[2020-09-15] MEDS: LATANOPROST 0.005% OPH SOLN 2.5 ML BOTTLE BOTH EYES SCH (23:18)
[2020-09-16] MEDS: ALBUTEROL/IPRATROPIUM 3 ML NEB RESP TX SCH ×4 (01:20→19:19)
[2020-09-16 04:59] LABS: Basophils % 0.5 % (0.0-0.8); Eosinophils % 0.5 % (0.00-10.9); Hematocrit 30.6 VOL% (42.0-52.0); Hemoglobin 10.1 GM/DL (14.0-18.0); Immature Granulocytes % 0.5 %; Immature Granulocytes Absolute 0.04 #; Lymphocytes # 1.2 10*3/uL (1.4-4.0); Lymphocytes % 13.6 % (21.2-54.2); Mean Corpuscular Volume 96.2 FL (87-102); Mean Platelet Volume 11.3 FL (9.6-12.0); NRBC # 0.05 10*3/uL; Neutrophils % 67.9 % (38.7-73.9); Platelet Count 165 T/CUMM (130-400); Red Blood Count 3.18 MC/CUMM (3.8-5.5); Red Cell Distribution Width 13.2 % (9.3-17.3); White Blood Count 8.5 T/CUMM (4-12)
[2020-09-16] MEDS: MEROPENEM 500 MG in SODIUM CHLORIDE 0.9% 100 ML IV SCH ×3 (05:20→20:28)
[2020-09-16 05:27] LABS: Albumin 1.9 G/DL (3.4-5.0); Bilirubin,Total 1.6 MG/DL (0.2-1.0); Calcium 7.8 MG/DL (8.5-10.1); Osmolality,Calculated 291.4 MOS/KG (273-304); Total Protein 7.6 G/DL (6.4-8.3)
[2020-09-16 05:28] LABS: Hypochromasia 1+; Lymphocytes 11 % (20-55); Microcytosis 1+; Platelet Estimate Adequate; Segmented Neutrophils 64 % (50-85); Total Cells Counted 100
[2020-09-16] MEDS: INSULIN LISPRO 100 UNIT/ML SUBCUT SCH ×4 (08:48→20:30)
[2020-09-16] MEDS: ASPIRIN EC 81 MG TABLET PO SCH (08:49)
[2020-09-16] MEDS: prednisoLONE ACETATE 1% OPH SUSP 5 ML BOTTLE RIGHT EYE SCH ×2 (08:49→20:29)
[2020-09-16] MEDS: FUROSEMIDE 40 MG TABLET PO SCH ×2 (08:49→16:54)
[2020-09-16] MEDS: carvediloL 3.125 MG TABLET PO SCH ×2 (08:49→20:29)
[2020-09-16] MEDS: BENZONATATE 100 MG CAPSULE PO SCH ×3 (08:49→20:29)
[2020-09-16] MEDS: MULTIVITAMIN (CENTRUM) TABLET PO SCH (08:49)
[2020-09-16] MEDS: VANCOMYCIN INJ 1,250 MG in SODIUM CHLORIDE 0.9% 250 ML IV SCH (14:35)
[2020-09-16] MEDS: ENOXAPARIN 40 MG/0.4 ML SYRINGE SUBCUT SCH (20:29)
[2020-09-16] MEDS: LATANOPROST 0.005% OPH SOLN 2.5 ML BOTTLE BOTH EYES SCH (20:29)
[2020-09-17] MEDS: ALBUTEROL/IPRATROPIUM 3 ML NEB RESP TX SCH ×4 (00:12→20:22)
[2020-09-17] MEDS: MEROPENEM 500 MG in SODIUM CHLORIDE 0.9% 100 ML IV SCH ×3 (03:31→21:33)
[2020-09-17 06:17] LABS: Albumin 1.8 G/DL (3.4-5.0); Bilirubin,Total 1.2 MG/DL (0.2-1.0); Calcium 7.9 MG/DL (8.5-10.1); Osmolality,Calculated 288.7 MOS/KG (273-304); Total Protein 7.7 G/DL (6.4-8.3)
[2020-09-17] MEDS: INSULIN LISPRO 100 UNIT/ML SUBCUT SCH ×4 (08:19→21:32)
[2020-09-17] MEDS: FUROSEMIDE 40 MG TABLET PO SCH (09:01)
[2020-09-17] MEDS: carvediloL 3.125 MG TABLET PO SCH ×2 (09:02→21:31)
[2020-09-17] MEDS: prednisoLONE ACETATE 1% OPH SUSP 5 ML BOTTLE RIGHT EYE SCH ×2 (09:02→21:34)
[2020-09-17] MEDS: ASPIRIN EC 81 MG TABLET PO SCH (09:02)
[2020-09-17] MEDS: POLYETHYLENE GLYCOL POWDER 17 GM PACK PO SCH ×2 (09:02→21:31)
[2020-09-17] MEDS: BENZONATATE 100 MG CAPSULE PO SCH ×3 (09:02→21:30)
[2020-09-17] MEDS: MULTIVITAMIN (CENTRUM) TABLET PO SCH (09:02)
[2020-09-17] MEDS: VANCOMYCIN INJ 1,250 MG in SODIUM CHLORIDE 0.9% 250 ML IV SCH (11:44)
[2020-09-17 15:25] LABS: Ferritin 905.6 ng/ml (26-388)
[2020-09-17] MEDS: ENOXAPARIN 40 MG/0.4 ML SYRINGE SUBCUT SCH (21:31)
[2020-09-17] MEDS: ACETAMINOPHEN 325 MG TABLET PO PRN (21:31)
[2020-09-17] MEDS: LATANOPROST 0.005% OPH SOLN 2.5 ML BOTTLE BOTH EYES SCH (22:43)
[2020-09-18] MEDS: ALBUTEROL/IPRATROPIUM 3 ML NEB RESP TX SCH ×4 (01:01→20:28)
[2020-09-18 04:18] LABS: Basophils % 0.3 % (0.0-0.8); Eosinophils % 0.4 % (0.00-10.9); Hematocrit 28.5 VOL% (42.0-52.0); Hemoglobin 9.6 GM/DL (14.0-18.0); Immature Granulocytes Absolute 0.11 #; Lymphocytes # 1.9 10*3/uL (1.4-4.0); Lymphocytes % 16.6 % (21.2-54.2); Mean Corpuscular HGB Conc 33.7 GM/DL (32-36); Mean Corpuscular Volume 93.1 FL (87-102); Mean Platelet Volume 11.7 FL (9.6-12.0); Monocytes % 18.5 % (1.7-12.7); NRBC # 0.03 10*3/uL; Neutrophils % 63.2 % (38.7-73.9); Platelet Count 210 T/CUMM (130-400); Red Blood Count 3.06 MC/CUMM (3.8-5.5); Red Cell Distribution Width 13.3 % (9.3-17.3); White Blood Count 11.3 T/CUMM (4-12)
[2020-09-18 04:43] LABS: Hypochromasia Slight; Lymphocytes 16 % (20-55); Nucleated Red Blood Cells 2 (0-5); Platelet Estimate Normal; Segmented Neutrophils 73 % (50-85); Total Cells Counted 100
[2020-09-18 04:51] LABS: Albumin 1.9 G/DL (3.4-5.0); Bilirubin,Total 1.5 MG/DL (0.2-1.0); Calcium 7.9 MG/DL (8.5-10.1); Osmolality,Calculated 293.5 MOS/KG (273-304)
[2020-09-18] MEDS: MEROPENEM 500 MG in SODIUM CHLORIDE 0.9% 100 ML IV SCH ×3 (05:46→21:12)
[2020-09-18] MEDS: INSULIN LISPRO 100 UNIT/ML SUBCUT SCH ×4 (08:08→21:21)
[2020-09-18] MEDS: ASPIRIN EC 81 MG TABLET PO SCH (09:24)
[2020-09-18] MEDS: MULTIVITAMIN (CENTRUM) TABLET PO SCH (09:24)
[2020-09-18] MEDS: carvediloL 3.125 MG TABLET PO SCH ×2 (09:24→21:13)
[2020-09-18] MEDS: BENZONATATE 100 MG CAPSULE PO SCH ×3 (09:24→21:13)
[2020-09-18] MEDS: FUROSEMIDE 40 MG TABLET PO SCH (09:24)
[2020-09-18] MEDS: prednisoLONE ACETATE 1% OPH SUSP 5 ML BOTTLE RIGHT EYE SCH ×2 (09:25→21:14)
[2020-09-18] MEDS: POLYETHYLENE GLYCOL POWDER 17 GM PACK PO SCH ×2 (09:25→21:14)
[2020-09-18] MEDS: SODIUM CHLORIDE 0.9% 1,000 ML IV SCH (10:14)
[2020-09-18] MEDS ORDERED: DEXAMETHASONE INJ 6 MG in SODIUM CHLORIDE 0.9% 50 ML IV SCH (11:00)
[2020-09-18] MEDS: DEXAMETHASONE 4 MG/1 ML VIAL IV SCH (12:11)
[2020-09-18] MEDS: VANCOMYCIN INJ 1,250 MG in SODIUM CHLORIDE 0.9% 250 ML IV SCH (13:39)
[2020-09-18] MEDS: ENOXAPARIN 30 MG/0.3 ML SYRINGE SUBCUT SCH (21:13)
[2020-09-18] MEDS: LATANOPROST 0.005% OPH SOLN 2.5 ML BOTTLE BOTH EYES SCH (21:14)
[2020-09-19] MEDS: SODIUM CHLORIDE 0.9% 1,000 ML IV SCH (00:43)
[2020-09-19] MEDS: ALBUTEROL/IPRATROPIUM 3 ML NEB RESP TX SCH ×4 (01:27→19:06)
[2020-09-19] MEDS: MEROPENEM 500 MG in SODIUM CHLORIDE 0.9% 100 ML IV SCH ×3 (04:10→21:21)
[2020-09-19 06:41] LABS: Basophils % 0.2 % (0.0-0.8); Eosinophils % 0.1 % (0.00-10.9); Hematocrit 28.6 VOL% (42.0-52.0); Hemoglobin 9.6 GM/DL (14.0-18.0); Immature Granulocytes % 1.7 %; Immature Granulocytes Absolute 0.21 #; Lymphocytes # 1.2 10*3/uL (1.4-4.0); Lymphocytes % 9.8 % (21.2-54.2); Mean Corpuscular HGB Conc 33.6 GM/DL (32-36); Mean Corpuscular Volume 94.7 FL (87-102); Mean Platelet Volume 11.9 FL (9.6-12.0); Monocytes % 8.5 % (1.7-12.7); NRBC # 0.03 10*3/uL; Neutrophils % 79.7 % (38.7-73.9); Platelet Count 228 T/CUMM (130-400); Red Blood Count 3.02 MC/CUMM (3.8-5.5); Red Cell Distribution Width 13.4 % (9.3-17.3); White Blood Count 12.1 T/CUMM (4-12)
[2020-09-19 07:03] LABS: Bilirubin,Total 1.2 MG/DL (0.2-1.0); Calcium 7.6 MG/DL (8.5-10.1); Osmolality,Calculated 297.1 MOS/KG (273-304); Total Protein 8.2 G/DL (6.4-8.3)
[2020-09-19] MEDS: ASPIRIN EC 81 MG TABLET PO SCH (09:54)
[2020-09-19] MEDS: POLYETHYLENE GLYCOL POWDER 17 GM PACK PO SCH ×2 (09:54→21:21)
[2020-09-19] MEDS: BENZONATATE 100 MG CAPSULE PO SCH ×3 (09:54→21:21)
[2020-09-19] MEDS: carvediloL 3.125 MG TABLET PO SCH ×2 (09:55→21:21)
[2020-09-19] MEDS: MULTIVITAMIN (CENTRUM) TABLET PO SCH (09:55)
[2020-09-19] MEDS: DEXAMETHASONE 4 MG/1 ML VIAL IV SCH (09:55)
[2020-09-19] MEDS: prednisoLONE ACETATE 1% OPH SUSP 5 ML BOTTLE RIGHT EYE SCH ×2 (10:15→21:21)
[2020-09-19] MEDS: INSULIN LISPRO 100 UNIT/ML SUBCUT SCH ×5 (11:35→21:21)
[2020-09-19] MEDS ORDERED: VANCOMYCIN INJ 1,250 MG in SODIUM CHLORIDE 0.9% 250 ML IV SCH (12:00)
[2020-09-19] MEDS: INSULIN GLARGINE 100 UNIT/ML SUBCUT SCH (21:21)
[2020-09-19] MEDS: ENOXAPARIN 30 MG/0.3 ML SYRINGE SUBCUT SCH (21:21)
[2020-09-19] MEDS: LATANOPROST 0.005% OPH SOLN 2.5 ML BOTTLE BOTH EYES SCH (21:21)
[2020-09-20] MEDS: ALBUTEROL/IPRATROPIUM 3 ML NEB RESP TX SCH ×4 (00:22→19:33)
[2020-09-20] MEDS: MEROPENEM 500 MG in SODIUM CHLORIDE 0.9% 100 ML IV SCH ×3 (03:37→20:50)
[2020-09-20 06:06] LABS: Basophils % 0.1 % (0.0-0.8); Hematocrit 28.2 VOL% (42.0-52.0); Hemoglobin 9.4 GM/DL (14.0-18.0); Immature Granulocytes % 1.7 %; Immature Granulocytes Absolute 0.25 #; Lymphocytes # 1.3 10*3/uL (1.4-4.0); Lymphocytes % 9.1 % (21.2-54.2); Mean Corpuscular HGB Conc 33.3 GM/DL (32-36); Mean Corpuscular Volume 95.3 FL (87-102); Mean Platelet Volume 11.9 FL (9.6-12.0); Monocytes % 7.4 % (1.7-12.7); NRBC # 0.05 10*3/uL; Neutrophils % 81.7 % (38.7-73.9); Platelet Count 260 T/CUMM (130-400); Red Blood Count 2.96 MC/CUMM (3.8-5.5); Red Cell Distribution Width 14.1 % (9.3-17.3); White Blood Count 14.3 T/CUMM (4-12)
[2020-09-20 06:33] LABS: Calcium 7.4 MG/DL (8.5-10.1); Osmolality,Calculated 307.2 MOS/KG (273-304)
[2020-09-20] MEDS: ASPIRIN EC 81 MG TABLET PO SCH (08:57)
[2020-09-20] MEDS: INSULIN LISPRO 100 UNIT/ML SUBCUT SCH ×4 (08:57→20:49)
[2020-09-20] MEDS: DEXAMETHASONE 4 MG/1 ML VIAL IV SCH (08:57)
[2020-09-20] MEDS: MULTIVITAMIN (CENTRUM) TABLET PO SCH (08:57)
[2020-09-20] MEDS: carvediloL 3.125 MG TABLET PO SCH ×2 (08:57→20:48)
[2020-09-20] MEDS: BENZONATATE 100 MG CAPSULE PO SCH ×3 (08:57→20:48)
[2020-09-20] MEDS: prednisoLONE ACETATE 1% OPH SUSP 5 ML BOTTLE RIGHT EYE SCH ×2 (08:58→21:48)
[2020-09-20] MEDS: POLYETHYLENE GLYCOL POWDER 17 GM PACK PO SCH (08:59)
[2020-09-20] MEDS ORDERED: SODIUM CHLORIDE 1 GM TABLET PO SCH (16:00)
[2020-09-20] MEDS: SODIUM CHLORIDE 1 GM TABLET PO SCH (20:48)
[2020-09-20] MEDS: INSULIN GLARGINE 100 UNIT/ML SUBCUT SCH (20:48)
[2020-09-20] MEDS: ENOXAPARIN 30 MG/0.3 ML SYRINGE SUBCUT SCH (20:48)
[2020-09-20] MEDS: LATANOPROST 0.005% OPH SOLN 2.5 ML BOTTLE BOTH EYES SCH (21:48)
[2020-09-21] MEDS: ALBUTEROL/IPRATROPIUM 3 ML NEB RESP TX SCH ×4 (01:14→19:21)
[2020-09-21] MEDS: MEROPENEM 500 MG in SODIUM CHLORIDE 0.9% 100 ML IV SCH ×3 (03:48→20:50)
[2020-09-21] MEDS: POLYETHYLENE GLYCOL POWDER 17 GM PACK PO SCH ×3 (03:48→20:53)
[2020-09-21 06:51] LABS: Basophils % 0.1 % (0.0-0.8); Hemoglobin 9.4 GM/DL (14.0-18.0); Immature Granulocytes % 0.7 %; Immature Granulocytes Absolute 0.07 #; Lymphocytes # 0.7 10*3/uL (1.4-4.0); Lymphocytes % 6.1 % (21.2-54.2); Mean Corpuscular HGB Conc 32.4 GM/DL (32-36); Mean Platelet Volume 11.7 FL (9.6-12.0); Monocytes % 7.1 % (1.7-12.7); NRBC # 0.05 10*3/uL; Platelet Count 258 T/CUMM (130-400); Red Blood Count 2.99 MC/CUMM (3.8-5.5); Red Cell Distribution Width 14.6 % (9.3-17.3); White Blood Count 10.6 T/CUMM (4-12)
[2020-09-21 07:18] LABS: Calcium 7.4 MG/DL (8.5-10.1); Osmolality,Calculated 308.9 MOS/KG (273-304)
[2020-09-21] MEDS: INSULIN LISPRO 100 UNIT/ML SUBCUT SCH ×4 (08:27→20:54)
[2020-09-21] MEDS: BENZONATATE 100 MG CAPSULE PO SCH ×3 (08:29→20:53)
[2020-09-21] MEDS: carvediloL 3.125 MG TABLET PO SCH ×2 (08:29→20:53)
[2020-09-21] MEDS: ASPIRIN EC 81 MG TABLET PO SCH (08:29)
[2020-09-21] MEDS: MULTIVITAMIN (CENTRUM) TABLET PO SCH (08:29)
[2020-09-21] MEDS: DEXAMETHASONE 4 MG/1 ML VIAL IV SCH (08:30)
[2020-09-21] MEDS: SODIUM CHLORIDE 1 GM TABLET PO SCH (08:30)
[2020-09-21] MEDS: prednisoLONE ACETATE 1% OPH SUSP 5 ML BOTTLE RIGHT EYE SCH ×2 (08:32→20:53)
[2020-09-21] MEDS ORDERED: INSULIN GLARGINE 100 UNIT/ML SUBCUT SCH (13:28)
[2020-09-21] MEDS: LATANOPROST 0.005% OPH SOLN 2.5 ML BOTTLE BOTH EYES SCH (20:53)
[2020-09-21] MEDS: ENOXAPARIN 30 MG/0.3 ML SYRINGE SUBCUT SCH (20:53)
[2020-09-22] MEDS: ALBUTEROL/IPRATROPIUM 3 ML NEB RESP TX SCH ×4 (00:53→19:23)
[2020-09-22] MEDS: MEROPENEM 500 MG in SODIUM CHLORIDE 0.9% 100 ML IV SCH ×3 (04:01→21:23)
[2020-09-22 06:27] LABS: Basophils % 0.2 % (0.0-0.8); Hematocrit 33.6 VOL% (42.0-52.0); Hemoglobin 10.7 GM/DL (14.0-18.0); Immature Granulocytes % 1.1 %; Lymphocytes # 0.6 10*3/uL (1.4-4.0); Lymphocytes % 6.9 % (21.2-54.2); Mean Corpuscular HGB Conc 31.8 GM/DL (32-36); Mean Corpuscular Volume 100.3 FL (87-102); Mean Platelet Volume 11.5 FL (9.6-12.0); Monocytes % 9.5 % (1.7-12.7); Neutrophils % 82.3 % (38.7-73.9); Platelet Count 255 T/CUMM (130-400); Red Blood Count 3.35 MC/CUMM (3.8-5.5); Red Cell Distribution Width 14.8 % (9.3-17.3); White Blood Count 9.3 T/CUMM (4-12)
[2020-09-22 06:53] LABS: Albumin 2.1 G/DL (3.4-5.0); Bilirubin,Total 0.8 MG/DL (0.2-1.0); Calcium 7.7 MG/DL (8.5-10.1); Osmolality,Calculated 308.4 MOS/KG (273-304); Total Protein 8.2 G/DL (6.4-8.3)
[2020-09-22] MEDS: SODIUM CHLORIDE 1 GM TABLET PO SCH (08:19)
[2020-09-22] MEDS: carvediloL 3.125 MG TABLET PO SCH ×2 (08:19→22:00)
[2020-09-22] MEDS: ASPIRIN EC 81 MG TABLET PO SCH (08:19)
[2020-09-22] MEDS: MULTIVITAMIN (CENTRUM) TABLET PO SCH (08:19)
[2020-09-22] MEDS: BENZONATATE 100 MG CAPSULE PO SCH ×3 (08:19→22:00)
[2020-09-22] MEDS: INSULIN LISPRO 100 UNIT/ML SUBCUT SCH ×4 (08:20→22:33)
[2020-09-22] MEDS: DEXAMETHASONE 4 MG/1 ML VIAL IV SCH (08:20)
[2020-09-22] MEDS: prednisoLONE ACETATE 1% OPH SUSP 5 ML BOTTLE RIGHT EYE SCH ×2 (08:32→22:00)
[2020-09-22] MEDS: POLYETHYLENE GLYCOL POWDER 17 GM PACK PO SCH ×2 (08:32→22:00)
[2020-09-22] MEDS: INSULIN GLARGINE 100 UNIT/ML SUBCUT SCH (22:00)
[2020-09-22] MEDS: LATANOPROST 0.005% OPH SOLN 2.5 ML BOTTLE BOTH EYES SCH (22:00)
[2020-09-22] MEDS: ENOXAPARIN 30 MG/0.3 ML SYRINGE SUBCUT SCH (23:24)
[2020-09-23] MEDS: ALBUTEROL/IPRATROPIUM 3 ML NEB RESP TX SCH ×4 (02:17→19:28)
[2020-09-23] MEDS: MEROPENEM 500 MG in SODIUM CHLORIDE 0.9% 100 ML IV SCH (05:40)
[2020-09-23 05:47] LABS: Basophils % 0.1 % (0.0-0.8); Eosinophils % 0.1 % (0.00-10.9); Hematocrit 31.9 VOL% (42.0-52.0); Hemoglobin 10.2 GM/DL (14.0-18.0); Immature Granulocytes % 0.8 %; Immature Granulocytes Absolute 0.08 #; Lymphocytes # 1.1 10*3/uL (1.4-4.0); Lymphocytes % 10.1 % (21.2-54.2); Mean Corpuscular Volume 96.4 FL (87-102); Mean Platelet Volume 10.3 FL (9.6-12.0); Monocytes % 10.7 % (1.7-12.7); Neutrophils % 78.2 % (38.7-73.9); Platelet Count 296 T/CUMM (130-400); Red Blood Count 3.31 MC/CUMM (3.8-5.5); Red Cell Distribution Width 14.8 % (9.3-17.3); White Blood Count 10.4 T/CUMM (4-12)
[2020-09-23 06:13] LABS: Albumin 1.9 G/DL (3.4-5.0); Bilirubin,Total 0.7 MG/DL (0.2-1.0); Calcium 7.3 MG/DL (8.5-10.1); Osmolality,Calculated 308.1 MOS/KG (273-304)
[2020-09-23] MEDS: DEXAMETHASONE 4 MG/1 ML VIAL IV SCH (08:51)
[2020-09-23] MEDS: INSULIN LISPRO 100 UNIT/ML SUBCUT SCH ×4 (08:51→21:27)
[2020-09-23] MEDS: BENZONATATE 100 MG CAPSULE PO SCH ×3 (08:52→21:27)
[2020-09-23] MEDS: carvediloL 3.125 MG TABLET PO SCH ×2 (08:52→21:27)
[2020-09-23] MEDS: POLYETHYLENE GLYCOL POWDER 17 GM PACK PO SCH ×2 (08:52→21:27)
[2020-09-23] MEDS: MULTIVITAMIN (CENTRUM) TABLET PO SCH (08:53)
[2020-09-23] MEDS: ASPIRIN EC 81 MG TABLET PO SCH (08:53)
[2020-09-23] MEDS: prednisoLONE ACETATE 1% OPH SUSP 5 ML BOTTLE RIGHT EYE SCH ×2 (08:53→21:27)
[2020-09-23] MEDS: SODIUM CHLORIDE 1 GM TABLET PO SCH (08:53)
[2020-09-23] MEDS ORDERED: ENOXAPARIN 40 MG/0.4 ML SYRINGE SUBCUT SCH (21:00)
[2020-09-23] MEDS: LATANOPROST 0.005% OPH SOLN 2.5 ML BOTTLE BOTH EYES SCH (21:27)
[2020-09-23] MEDS: INSULIN GLARGINE 100 UNIT/ML SUBCUT SCH (21:27)
[2020-09-24] MEDS: ALBUTEROL/IPRATROPIUM 3 ML NEB RESP TX SCH ×3 (02:20→13:40)
[2020-09-24 05:54] LABS: Basophils % 0.2 % (0.0-0.8); Eosinophils % 0.2 % (0.00-10.9); Hematocrit 37.9 VOL% (42.0-52.0); Hemoglobin 11.7 GM/DL (14.0-18.0); Immature Granulocytes % 1.1 %; Immature Granulocytes Absolute 0.13 #; Lymphocytes # 1.3 10*3/uL (1.4-4.0); Lymphocytes % 10.8 % (21.2-54.2); Mean Corpuscular HGB Conc 30.9 GM/DL (32-36); Mean Corpuscular Volume 102.7 FL (87-102); Mean Platelet Volume 10.9 FL (9.6-12.0); Monocytes % 11.1 % (1.7-12.7); Neutrophils % 76.6 % (38.7-73.9); Platelet Count 311 T/CUMM (130-400); Red Blood Count 3.69 MC/CUMM (3.8-5.5); Red Cell Distribution Width 14.9 % (9.3-17.3); White Blood Count 12.3 T/CUMM (4-12)
[2020-09-24 06:08] LABS: Calcium 7.8 MG/DL (8.5-10.1); Osmolality,Calculated 305.7 MOS/KG (273-304)
[2020-09-24] MEDS: INSULIN LISPRO 100 UNIT/ML SUBCUT SCH ×2 (09:01→12:20)
[2020-09-24] MEDS: BENZONATATE 100 MG CAPSULE PO SCH (09:02)
[2020-09-24] MEDS: ASPIRIN EC 81 MG TABLET PO SCH (09:02)
[2020-09-24] MEDS: POLYETHYLENE GLYCOL POWDER 17 GM PACK PO SCH (09:02)
[2020-09-24] MEDS: MULTIVITAMIN (CENTRUM) TABLET PO SCH (09:02)
[2020-09-24] MEDS: carvediloL 3.125 MG TABLET PO SCH (09:03)
[2020-09-24] MEDS: prednisoLONE ACETATE 1% OPH SUSP 5 ML BOTTLE RIGHT EYE SCH (09:07)
[2020-09-24] MEDS: SODIUM CHLORIDE 1 GM TABLET PO SCH (10:35)
[2020-09-24 12:12] VITALS: BP 114/82
== END 2020-09-24 14:49 | disposition home health service (06) | DRG 871 ==
LOC: N.ED 11:56 → N.EDINP 11:56 → SUATTDRO 15:10 → N.EDINP 16:12 → N.TELES 16:19 → SUATTDRO 09-15 11:10 → N.ICU 09-15 17:52 → N.TELES 09-18 16:13
PROVIDERS: ADMIT Internal Medicine; ATTEND Internal Medicine

== ENCOUNTER 2020-10-14 19:48 | Inpatient (IN) ==
[2020-10-14 20:45] LABS: Basophils % 0.4 % (0.0-0.8); Eosinophils # 0.1 10*3/uL (0.0-0.87); Eosinophils % 2.4 % (0.00-10.9); Hematocrit 35.3 VOL% (42.0-52.0); Hemoglobin 10.9 GM/DL (14.0-18.0); Immature Granulocytes % 0.2 %; Immature Granulocytes Absolute 0.01 #; Lymphocytes # 2.2 10*3/uL (1.4-4.0); Lymphocytes % 44.5 % (21.2-54.2); Mean Corpuscular HGB Conc 30.9 GM/DL (32-36); Mean Corpuscular Volume 98.9 FL (87-102); Mean Platelet Volume 10.6 FL (9.6-12.0); Monocytes % 21.3 % (1.7-12.7); Neutrophils % 31.2 % (38.7-73.9); Platelet Count 230 T/CUMM (130-400); Red Blood Count 3.57 MC/CUMM (3.8-5.5); Red Cell Distribution Width 14.4 % (9.3-17.3); White Blood Count 4.9 T/CUMM (4-12)
[2020-10-14 20:53] LABS: Albumin 2.6 G/DL (3.4-5.0); Bilirubin,Total 0.9 MG/DL (0.2-1.0); Calcium 8.4 MG/DL (8.5-10.1); Osmolality,Calculated 289.5 MOS/KG (273-304); Potassium 4.1 MMOL/L (3.5-5.1)
[2020-10-14 21:08] LABS: Anisocytosis Slight; Eosinophils 2 % (0-10); Hypochromasia Slight; Lymphocytes 44 % (20-55); Macrocytosis Slight; Platelet Estimate Normal; Polychromasia Slight; Segmented Neutrophils 37 % (50-85); Total Cells Counted 100
[2020-10-14] MEDS ORDERED: MORPHINE 4 MG/1 ML VIAL IV STA (21:31)
[2020-10-14] MEDS ORDERED: FUROSEMIDE 100 MG/10 ML VIAL IV STA (21:31)
[2020-10-14] MEDS ORDERED: ASPIRIN 325 MG TABLET PO STA (21:31)
[2020-10-14] MEDS ORDERED: ONDANSETRON 4 MG/2 ML VIAL IV STA (21:31)
[2020-10-14] MEDS ORDERED: ACETAMINOPHEN 325 MG TABLET PO PRN (22:44)
[2020-10-14] MEDS ORDERED: MAGNESIUM SULF RIDER 2 GM in PREMIX 1 EACH IV PRN (22:44)
[2020-10-14] MEDS ORDERED: MORPHINE 4 MG/1 ML VIAL IV PRN (22:44)
[2020-10-14] MEDS ORDERED: DEXTROSE 50% 25 GM/50 ML VIAL IV PRN ×2 (22:44)
[2020-10-14] MEDS ORDERED: ONDANSETRON 4 MG/2 ML VIAL IV PRN (22:44)
[2020-10-14] MEDS ORDERED: MAGNESIUM SULF RIDER 4 GM in PREMIX 1 EACH IV PRN (22:44)
[2020-10-14] MEDS ORDERED: GLUCAGON 1 MG VIAL IM PRN (22:44)
[2020-10-14] MEDS: ENOXAPARIN 40 MG/0.4 ML SYRINGE SUBCUT SCH (23:41)
[2020-10-14] MEDS: INSULIN REGULAR 100 UNIT/ML SUBCUT SCH (23:41)
[2020-10-15 06:26] LABS: Basophils % 0.6 % (0.0-0.8); Eosinophils # 0.1 10*3/uL (0.0-0.87); Eosinophils % 2.5 % (0.00-10.9); Hemoglobin 9.5 GM/DL (14.0-18.0); Immature Granulocytes % 0.2 %; Immature Granulocytes Absolute 0.01 #; Lymphocytes # 2.2 10*3/uL (1.4-4.0); Lymphocytes % 45.4 % (21.2-54.2); Mean Corpuscular HGB Conc 30.6 GM/DL (32-36); Mean Corpuscular Volume 98.4 FL (87-102); Mean Platelet Volume 9.8 FL (9.6-12.0); Monocytes % 22.1 % (1.7-12.7); Neutrophils % 29.2 % (38.7-73.9); Platelet Count 202 T/CUMM (130-400); Red Blood Count 3.15 MC/CUMM (3.8-5.5); Red Cell Distribution Width 14.5 % (9.3-17.3); White Blood Count 4.8 T/CUMM (4-12)
[2020-10-15 06:46] LABS: Eosinophils 4 % (0-10); Hypochromasia 1+; Lymphocytes 47 % (20-55); Microcytosis 1+; Platelet Estimate Adequate; Segmented Neutrophils 31 % (50-85); Total Cells Counted 100
[2020-10-15 06:49] LABS: Albumin 2.3 G/DL (3.4-5.0); Bilirubin,Total 0.7 MG/DL (0.2-1.0); Calcium 8.1 MG/DL (8.5-10.1); Osmolality,Calculated 283.5 MOS/KG (273-304); Potassium 4.1 MMOL/L (3.5-5.1); Total Protein 7.1 G/DL (6.4-8.3)
[2020-10-15] MEDS: FUROSEMIDE 40 MG/4 ML VIAL IV SCH ×2 (09:30→15:18)
[2020-10-15] MEDS: INSULIN REGULAR 100 UNIT/ML SUBCUT SCH ×4 (09:38→21:19)
[2020-10-15] MEDS: carvediloL 3.125 MG TABLET PO SCH ×2 (10:11→21:15)
[2020-10-15] MEDS: ASPIRIN EC 81 MG TABLET PO SCH (10:12)
[2020-10-15] MEDS: PANTOPRAZOLE 40 MG TABLET PO SCH (10:12)
[2020-10-15] MEDS: prednisoLONE ACETATE 1% OPH SUSP 5 ML BOTTLE RIGHT EYE SCH ×2 (10:57→21:15)
[2020-10-15] MEDS: LATANOPROST 0.005% OPH SOLN 2.5 ML BOTTLE BOTH EYES SCH (23:29)
[2020-10-15] MEDS: ENOXAPARIN 40 MG/0.4 ML SYRINGE SUBCUT SCH (23:29)
[2020-10-16 06:24] LABS: Basophils % 0.9 % (0.0-0.8); Eosinophils # 0.1 10*3/uL (0.0-0.87); Eosinophils % 2.1 % (0.00-10.9); Hematocrit 33.4 VOL% (42.0-52.0); Hemoglobin 10.1 GM/DL (14.0-18.0); Immature Granulocytes % 0.9 %; Immature Granulocytes Absolute 0.04 #; Lymphocytes # 1.9 10*3/uL (1.4-4.0); Lymphocytes % 41.4 % (21.2-54.2); Mean Corpuscular HGB Conc 30.2 GM/DL (32-36); Mean Corpuscular Volume 99.1 FL (87-102); Mean Platelet Volume 10.2 FL (9.6-12.0); Monocytes % 20.8 % (1.7-12.7); Neutrophils % 33.9 % (38.7-73.9); Platelet Count 221 T/CUMM (130-400); Red Blood Count 3.37 MC/CUMM (3.8-5.5); Red Cell Distribution Width 14.6 % (9.3-17.3); White Blood Count 4.7 T/CUMM (4-12)
[2020-10-16 06:48] LABS: Eosinophils 2 % (0-10); Lymphocytes 39 % (20-55); Platelet Estimate Normal; Segmented Neutrophils 44 % (50-85); Total Cells Counted 100
[2020-10-16 06:49] LABS: Hypochromasia Slight
[2020-10-16 07:06] LABS: Calcium 7.8 MG/DL (8.5-10.1); Osmolality,Calculated 278.2 MOS/KG (273-304); Potassium 4.2 MMOL/L (3.5-5.1)
[2020-10-16] MEDS: ASPIRIN EC 81 MG TABLET PO SCH (09:13)
[2020-10-16] MEDS: carvediloL 3.125 MG TABLET PO SCH ×2 (09:13→22:11)
[2020-10-16] MEDS: INSULIN REGULAR 100 UNIT/ML SUBCUT SCH ×4 (09:13→22:12)
[2020-10-16] MEDS: PANTOPRAZOLE 40 MG TABLET PO SCH (09:13)
[2020-10-16] MEDS: prednisoLONE ACETATE 1% OPH SUSP 5 ML BOTTLE RIGHT EYE SCH ×2 (09:14→22:12)
[2020-10-16] MEDS: FUROSEMIDE 40 MG/4 ML VIAL IV SCH ×2 (09:23→15:43)
[2020-10-16] MEDS: ENOXAPARIN 40 MG/0.4 ML SYRINGE SUBCUT SCH (22:12)
[2020-10-16] MEDS: LATANOPROST 0.005% OPH SOLN 2.5 ML BOTTLE BOTH EYES SCH (22:12)
[2020-10-17 05:51] LABS: Basophils % 0.8 % (0.0-0.8); Eosinophils # 0.1 10*3/uL (0.0-0.87); Hematocrit 33.2 VOL% (42.0-52.0); Hemoglobin 10.1 GM/DL (14.0-18.0); Immature Granulocytes % 0.2 %; Immature Granulocytes Absolute 0.01 #; Lymphocytes # 1.9 10*3/uL (1.4-4.0); Lymphocytes % 38.8 % (21.2-54.2); Mean Corpuscular HGB Conc 30.4 GM/DL (32-36); Mean Corpuscular Volume 99.1 FL (87-102); Mean Platelet Volume 10.5 FL (9.6-12.0); Monocytes % 21.3 % (1.7-12.7); Neutrophils % 36.9 % (38.7-73.9); Platelet Count 228 T/CUMM (130-400); Red Blood Count 3.35 MC/CUMM (3.8-5.5); Red Cell Distribution Width 14.6 % (9.3-17.3)
[2020-10-17 06:07] LABS: Calcium 7.8 MG/DL (8.5-10.1); Osmolality,Calculated 283.7 MOS/KG (273-304)
[2020-10-17 08:26] LABS: Atypical Lymphocytes 1+; Eosinophils 2 % (0-10); Lymphocytes 45 % (20-55); Reactive Lymphocytes Few; Segmented Neutrophils 38 % (50-85); Total Cells Counted 100
[2020-10-17 08:28] LABS: Anisocytosis 1+; Hypochromasia Slight; Platelet Estimate Normal; Polychromasia Slight
[2020-10-17] MEDS: ASPIRIN EC 81 MG TABLET PO SCH (09:44)
[2020-10-17] MEDS: carvediloL 3.125 MG TABLET PO SCH ×2 (09:44→22:02)
[2020-10-17] MEDS: FUROSEMIDE 40 MG/4 ML VIAL IV SCH ×2 (09:44→15:36)
[2020-10-17] MEDS: PANTOPRAZOLE 40 MG TABLET PO SCH (09:44)
[2020-10-17] MEDS: prednisoLONE ACETATE 1% OPH SUSP 5 ML BOTTLE RIGHT EYE SCH ×2 (09:45→22:03)
[2020-10-17] MEDS: INSULIN REGULAR 100 UNIT/ML SUBCUT SCH ×4 (09:45→22:02)
[2020-10-17] MEDS: metOLazone 2.5 MG TABLET PO SCH (15:36)
[2020-10-17] MEDS: ENOXAPARIN 40 MG/0.4 ML SYRINGE SUBCUT SCH (22:03)
[2020-10-17] MEDS: LATANOPROST 0.005% OPH SOLN 2.5 ML BOTTLE BOTH EYES SCH (22:03)
[2020-10-18 06:00] LABS: Basophils % 0.9 % (0.0-0.8); Eosinophils # 0.1 10*3/uL (0.0-0.87); Eosinophils % 2.8 % (0.00-10.9); Hematocrit 32.3 VOL% (42.0-52.0); Immature Granulocytes % 0.2 %; Immature Granulocytes Absolute 0.01 #; Lymphocytes # 1.7 10*3/uL (1.4-4.0); Lymphocytes % 38.2 % (21.2-54.2); Mean Corpuscular Volume 98.2 FL (87-102); Mean Platelet Volume 10.3 FL (9.6-12.0); Monocytes % 20.6 % (1.7-12.7); Neutrophils % 37.3 % (38.7-73.9); Platelet Count 219 T/CUMM (130-400); Red Blood Count 3.29 MC/CUMM (3.8-5.5); Red Cell Distribution Width 14.6 % (9.3-17.3); White Blood Count 4.3 T/CUMM (4-12)
[2020-10-18 06:22] LABS: Calcium 7.7 MG/DL (8.5-10.1); Osmolality,Calculated 281.7 MOS/KG (273-304); Potassium 3.8 MMOL/L (3.5-5.1)
[2020-10-18 07:25] LABS: Band Neutrophils 1 % (0-10); Eosinophils 3 % (0-10); Lymphocytes 32 % (20-55); Segmented Neutrophils 40 % (50-85); Total Cells Counted 100
[2020-10-18 07:26] LABS: Anisocytosis 2+; Macrocytosis 1+; Platelet Estimate Normal; Polychromasia Slight
[2020-10-18] MEDS: ASPIRIN EC 81 MG TABLET PO SCH (08:41)
[2020-10-18] MEDS: metOLazone 2.5 MG TABLET PO SCH (08:41)
[2020-10-18] MEDS: PANTOPRAZOLE 40 MG TABLET PO SCH (08:41)
[2020-10-18] MEDS: carvediloL 3.125 MG TABLET PO SCH ×2 (08:41→21:31)
[2020-10-18] MEDS: FUROSEMIDE 40 MG/4 ML VIAL IV SCH ×2 (08:41→16:24)
[2020-10-18] MEDS: prednisoLONE ACETATE 1% OPH SUSP 5 ML BOTTLE RIGHT EYE SCH ×2 (08:42→21:32)
[2020-10-18] MEDS: INSULIN REGULAR 100 UNIT/ML SUBCUT SCH ×4 (08:42→21:31)
[2020-10-18] MEDS: LATANOPROST 0.005% OPH SOLN 2.5 ML BOTTLE BOTH EYES SCH (21:32)
[2020-10-18] MEDS: ENOXAPARIN 40 MG/0.4 ML SYRINGE SUBCUT SCH (22:09)
[2020-10-19 05:17] LABS: Basophils % 0.7 % (0.0-0.8); Eosinophils # 0.1 10*3/uL (0.0-0.87); Eosinophils % 2.5 % (0.00-10.9); Hematocrit 33.6 VOL% (42.0-52.0); Hemoglobin 10.3 GM/DL (14.0-18.0); Immature Granulocytes % 0.2 %; Immature Granulocytes Absolute 0.01 #; Lymphocytes # 1.6 10*3/uL (1.4-4.0); Mean Corpuscular HGB Conc 30.7 GM/DL (32-36); Mean Corpuscular Volume 97.1 FL (87-102); Monocytes % 21.5 % (1.7-12.7); Neutrophils % 38.1 % (38.7-73.9); Platelet Count 222 T/CUMM (130-400); Red Blood Count 3.46 MC/CUMM (3.8-5.5); Red Cell Distribution Width 14.4 % (9.3-17.3); White Blood Count 4.3 T/CUMM (4-12)
[2020-10-19 05:35] LABS: Calcium 7.8 MG/DL (8.5-10.1); Osmolality,Calculated 281.5 MOS/KG (273-304); Potassium 3.3 MMOL/L (3.5-5.1)
[2020-10-19] MEDS ORDERED: POTASSIUM CHLORIDE 20 MEQ TABLET PO ONE ×2 (08:13→15:04)
[2020-10-19] MEDS ORDERED: MAGNESIUM SULF RIDER 2 GM in PREMIX 1 EACH IV ONE (08:14)
[2020-10-19] MEDS: INSULIN REGULAR 100 UNIT/ML SUBCUT SCH ×4 (08:30→22:36)
[2020-10-19 08:54] LABS: Anisocytosis 2+; Macrocytosis 1+; Platelet Estimate Normal; Polychromasia Slight
[2020-10-19] MEDS: ASPIRIN EC 81 MG TABLET PO SCH (08:59)
[2020-10-19] MEDS: carvediloL 3.125 MG TABLET PO SCH ×2 (09:00→22:36)
[2020-10-19] MEDS: PANTOPRAZOLE 40 MG TABLET PO SCH (09:00)
[2020-10-19] MEDS: metOLazone 2.5 MG TABLET PO SCH (09:00)
[2020-10-19] MEDS: FUROSEMIDE 40 MG/4 ML VIAL IV SCH ×2 (09:01→15:48)
[2020-10-19] MEDS: prednisoLONE ACETATE 1% OPH SUSP 5 ML BOTTLE RIGHT EYE SCH ×2 (09:06→22:37)
[2020-10-19] MEDS ORDERED: FUROSEMIDE 80 MG TABLET PO SCH (16:00)
[2020-10-19] MEDS: LATANOPROST 0.005% OPH SOLN 2.5 ML BOTTLE BOTH EYES SCH (22:37)
[2020-10-19] MEDS: ENOXAPARIN 40 MG/0.4 ML SYRINGE SUBCUT SCH (22:37)
[2020-10-20] MEDS ORDERED: FUROSEMIDE 80 MG TABLET PO SCH ×2 (07:00→08:00)
[2020-10-20 07:19] LABS: Calcium 8.4 MG/DL (8.5-10.1); Osmolality,Calculated 284.1 MOS/KG (273-304); Potassium 3.6 MMOL/L (3.5-5.1)
[2020-10-20 08:05] LABS: Basophils % 0.8 % (0.0-0.8); Eosinophils # 0.1 10*3/uL (0.0-0.87); Eosinophils % 2.5 % (0.00-10.9); Hematocrit 36.1 VOL% (42.0-52.0); Hemoglobin 11.2 GM/DL (14.0-18.0); Immature Granulocytes % 0.4 %; Immature Granulocytes Absolute 0.02 #; Lymphocytes # 1.8 10*3/uL (1.4-4.0); Lymphocytes % 37.4 % (21.2-54.2); Mean Corpuscular Volume 95.8 FL (87-102); Mean Platelet Volume 10.7 FL (9.6-12.0); Monocytes % 21.4 % (1.7-12.7); Neutrophils % 37.5 % (38.7-73.9); Platelet Count 238 T/CUMM (130-400); Red Blood Count 3.77 MC/CUMM (3.8-5.5); Red Cell Distribution Width 14.2 % (9.3-17.3); White Blood Count 4.7 T/CUMM (4-12)
[2020-10-20 08:28] VITALS: BP 132/83
[2020-10-20 08:44] LABS: Atypical Lymphocytes Few; Eosinophils 3 % (0-10); Hypochromasia 1+; Lymphocytes 42 % (20-55); Microcytosis 1+; Platelet Estimate Adequate; Segmented Neutrophils 38 % (50-85); Total Cells Counted 100
[2020-10-20] MEDS: INSULIN REGULAR 100 UNIT/ML SUBCUT SCH (09:22)
[2020-10-20] MEDS: carvediloL 3.125 MG TABLET PO SCH (09:23)
[2020-10-20] MEDS: PANTOPRAZOLE 40 MG TABLET PO SCH (09:23)
[2020-10-20] MEDS: ASPIRIN EC 81 MG TABLET PO SCH (09:23)
[2020-10-20] MEDS: prednisoLONE ACETATE 1% OPH SUSP 5 ML BOTTLE RIGHT EYE SCH (09:52)
== END 2020-10-20 12:40 | disposition home health service (06) | DRG 291 ==
LOC: N.ED 19:48 → N.EDINP 22:44 → N.TELES 10-15 01:19
PROVIDERS: ADMIT Internal Medicine; ATTEND Internal Medicine

== ENCOUNTER 2021-02-18 17:19 | Inpatient (IN) ==
[2021-02-18] MEDS ORDERED: SODIUM CHLORIDE 0.9% 1,000 ML IV STA (18:37)
[2021-02-18] MEDS ORDERED: LABETALOL 20 MG/4 ML SYRINGE IV STA (19:08)
[2021-02-18 19:16] LABS: ABG Base Excess -5.1 MMOL/L (-2.5-2.5); ABG HCO3 20.2 MMOL/L (20-26); ABG PCO2 41.3 MM HG (35-48); ABG PH 7.312 (7.35-7.45); ABG PO2 81.7 MM HG (80-95); ABG TCO2 19.2 MMOL/L (23-27)
[2021-02-18 19:27] LABS: Basophils % 0.8 % (0.0-0.8); Eosinophils # 0.1 10*3/uL (0.0-0.87); Eosinophils % 3.5 % (0.00-10.9); Hematocrit 31.4 VOL% (42.0-52.0); Hemoglobin 10.5 GM/DL (14.0-18.0); Immature Granulocytes % 0.8 %; Immature Granulocytes Absolute 0.03 #; Lymphocytes # 1.2 10*3/uL (1.4-4.0); Lymphocytes % 30.3 % (21.2-54.2); Mean Corpuscular HGB Conc 33.4 GM/DL (32-36); Mean Corpuscular Volume 88.5 FL (87-102); Mean Platelet Volume 10.4 FL (9.6-12.0); Monocytes % 17.7 % (1.7-12.7); Neutrophils % 46.9 % (38.7-73.9); Platelet Count 100 T/CUMM (130-400); Red Blood Count 3.55 MC/CUMM (3.8-5.5); Red Cell Distribution Width 14.9 % (9.3-17.3)
[2021-02-18 19:55] LABS: Eosinophils 4 % (0-10); Lymphocytes 28 % (20-55); Metamyelocytes 2 %; Segmented Neutrophils 51 % (50-85); Total Cells Counted 100
[2021-02-18 19:56] LABS: Anisocytosis 1+; Atypical Lymphocytes Few; Dohle Bodies Few; Macrocytosis Slight; Microcytosis 1+; Platelet Estimate Decreased; Polychromasia Slight; Toxic Granulation 1+
[2021-02-18] MEDS ORDERED: INSULIN REGULAR DRIP 100 ML IV PRN ×2 (20:08→20:58)
[2021-02-18 20:09] LABS: Bilirubin,Urine Negative (Negative); Blood, Urine Small mg/dL (Negative); Glucose,Urine (UA) >=500 mg/dL (Negative); Ketones,Urine Negative (Negative); Nitrite,Urine Negative (Negative); Protein,Urine 30 MG/DL; RBC,Urine 1 /HPF (0-4); Urine Appearance CLEAR (Clear); Urine Color Colorless (Yellow); Urine Specific Gravity 1.014 (1.001-1.035); Urine Urobilinogen < 2.0 EU/DL (0.2-1.0)
[2021-02-18 20:45] LABS: Albumin 3.4 G/DL (3.4-5.0); Bilirubin,Total 0.7 MG/DL (0.2-1.0); Calcium 8.4 MG/DL (8.5-10.1); Osmolality,Calculated 298.4 MOS/KG (273-304); Potassium 4.9 MMOL/L (3.5-5.1); Total Protein 8.2 G/DL (6.4-8.2)
[2021-02-18] MEDS ORDERED: SODIUM PHOSPHATE INJ 17.6 MMOL in SODIUM CHLORIDE 0.9% 250 ML IV PRN (21:16)
[2021-02-18] MEDS ORDERED: DEXTROSE 50% 25 GM/50 ML VIAL IV PRN ×3 (21:16)
[2021-02-18] MEDS ORDERED: MAGNESIUM SULF RIDER 4 GM/100 ML PREMIX IV PRN (21:16)
[2021-02-18] MEDS ORDERED: GLUCAGON 1 MG VIAL IM PRN (21:16)
[2021-02-18] MEDS ORDERED: MAGNESIUM SULF RIDER 2 GM/50 ML PREMIX IV PRN (21:16)
[2021-02-18] MEDS ORDERED: SODIUM BICARB INJ 100 MEQ in STERILE WATER INJ 400 ML IV PRN (21:16)
[2021-02-18] MEDS ORDERED: DOCUSATE SODIUM 100 MG CAPSULE PO PRN (21:22)
[2021-02-18] MEDS ORDERED: ACETAMINOPHEN 325 MG TABLET PO PRN (21:22)
[2021-02-18] MEDS ORDERED: ALBUTEROL 2.5 MG/3 ML NEB RESP TX PRN (21:22)
[2021-02-18] MEDS ORDERED: ONDANSETRON 4 MG/2 ML VIAL IV PRN (21:22)
[2021-02-18] MEDS ORDERED: hydrALAZINE 20 MG/1 ML VIAL IV PRN (21:22)
[2021-02-18] MEDS ORDERED: INSULIN REGULAR DRIP 100 ML IV SCH (21:30)
[2021-02-18 23:04] LABS: Calcium 7.8 MG/DL (8.5-10.1); Osmolality,Calculated 295.7 MOS/KG (273-304); Potassium 4.6 MMOL/L (3.5-5.1)
[2021-02-18] MEDS ORDERED: ENOXAPARIN 30 MG/0.3 ML SYRINGE SUBCUT SCH (23:45)
[2021-02-18 23:55] VITALS: BP 152/98
[2021-02-19] MEDS ORDERED: hydrALAZINE 20 MG/1 ML VIAL IV PRN (00:22)
[2021-02-19] MEDS: SODIUM CHLORIDE 0.9% 1,000 ML IV SCH ×4 (00:31→21:50)
[2021-02-19 02:00] LABS: Eosinophils # 0.2 10*3/uL (0.0-0.87); Eosinophils % 4.1 % (0.00-10.9); Hematocrit 28.1 VOL% (42.0-52.0); Hemoglobin 9.5 GM/DL (14.0-18.0); Immature Granulocytes % 0.5 %; Immature Granulocytes Absolute 0.02 #; Lymphocytes # 1.3 10*3/uL (1.4-4.0); Lymphocytes % 33.6 % (21.2-54.2); Mean Corpuscular HGB Conc 33.8 GM/DL (32-36); Mean Corpuscular Volume 88.1 FL (87-102); Mean Platelet Volume 10.4 FL (9.6-12.0); Monocytes % 16.5 % (1.7-12.7); Neutrophils % 44.3 % (38.7-73.9); Platelet Count 106 T/CUMM (130-400); Red Blood Count 3.19 MC/CUMM (3.8-5.5); White Blood Count 3.9 T/CUMM (4-12)
[2021-02-19 02:21] LABS: Calcium 8.6 MG/DL (8.5-10.1); Osmolality,Calculated 292.4 MOS/KG (273-304); Potassium 3.7 MMOL/L (3.5-5.1)
[2021-02-19 02:23] LABS: Eosinophils 2 % (0-10); Hypochromasia Slight; Lymphocytes 37 % (20-55); Platelet Estimate Adequate; Segmented Neutrophils 51 % (50-85); Total Cells Counted 100
[2021-02-19] MEDS ORDERED: SODIUM CHLORIDE 0.9% 1,000 ML IV SCH (02:30)
[2021-02-19] MEDS: POTASSIUM CHLORIDE RIDER 10 MEQ/100 ML PREMIX IV PRN ×2 (03:26→05:35)
[2021-02-19 05:00] LABS: Calcium 8.4 MG/DL (8.5-10.1); Osmolality,Calculated 288.1 MOS/KG (273-304); Potassium 3.9 MMOL/L (3.5-5.1)
[2021-02-19] MEDS ORDERED: ENTECAVIR 0.5 MG PO SCH (09:00)
[2021-02-19] MEDS ORDERED: INSULIN GLARGINE 100 UNIT/ML SUBCUT ONE (09:00)
[2021-02-19] MEDS: CHOLECALCIFEROL 5,000 UNIT TABLET PO SCH (09:45)
[2021-02-19] MEDS: carvediloL 6.25 MG TABLET PO SCH ×2 (09:45→20:21)
[2021-02-19] MEDS: PANTOPRAZOLE 40 MG TABLET PO SCH (09:45)
[2021-02-19] MEDS: ASPIRIN EC 81 MG TABLET PO SCH (09:45)
[2021-02-19] MEDS: CLOPIDOGREL 75 MG TABLET PO SCH (09:45)
[2021-02-19 10:08] LABS: Calcium 7.9 MG/DL (8.5-10.1); Osmolality,Calculated 288.5 MOS/KG (273-304); Potassium 4.1 MMOL/L (3.5-5.1)
[2021-02-19] MEDS: prednisoLONE ACETATE 1% OPH SUSP 5 ML BOTTLE RIGHT EYE SCH ×2 (11:38→20:22)
[2021-02-19] MEDS: INSULIN LISPRO 100 UNIT/ML SUBCUT SCH ×3 (13:00→20:21)
[2021-02-19] MEDS ORDERED: SODIUM CHLORIDE 0.45% 1,000 ML IV SCH (14:30)
[2021-02-19 15:01] LABS: Calcium 7.8 MG/DL (8.5-10.1); Osmolality,Calculated 288.4 MOS/KG (273-304); Potassium 4.4 MMOL/L (3.5-5.1)
[2021-02-19] MEDS ORDERED: INSULIN GLARGINE 100 UNIT/ML SUBCUT SCH (21:00)
[2021-02-19] MEDS ORDERED: LATANOPROST 0.005% OPH SOLN 2.5 ML BOTTLE BOTH EYES SCH (21:00)
[2021-02-20 05:02] LABS: Basophils % 0.6 % (0.0-0.8); Eosinophils # 0.2 10*3/uL (0.0-0.87); Eosinophils % 4.4 % (0.00-10.9); Hematocrit 25.9 VOL% (42.0-52.0); Hemoglobin 8.9 GM/DL (14.0-18.0); Immature Granulocytes Absolute 0.05 #; Lymphocytes # 1.8 10*3/uL (1.4-4.0); Lymphocytes % 33.3 % (21.2-54.2); Mean Corpuscular HGB Conc 34.4 GM/DL (32-36); Mean Corpuscular Volume 89.9 FL (87-102); Monocytes % 14.7 % (1.7-12.7); Platelet Count 105 T/CUMM (130-400); Red Blood Count 2.88 MC/CUMM (3.8-5.5); Red Cell Distribution Width 15.7 % (9.3-17.3); White Blood Count 5.3 T/CUMM (4-12)
[2021-02-20 05:17] LABS: Calcium 7.7 MG/DL (8.5-10.1); Osmolality,Calculated 282.3 MOS/KG (273-304); Potassium 3.5 MMOL/L (3.5-5.1)
[2021-02-20] MEDS: POTASSIUM CHLORIDE RIDER 10 MEQ/100 ML PREMIX IV PRN (05:45)
[2021-02-20] MEDS: CHOLECALCIFEROL 5,000 UNIT TABLET PO SCH (08:18)
[2021-02-20] MEDS: CLOPIDOGREL 75 MG TABLET PO SCH (08:18)
[2021-02-20] MEDS: PANTOPRAZOLE 40 MG TABLET PO SCH (08:19)
[2021-02-20] MEDS: ASPIRIN EC 81 MG TABLET PO SCH (08:19)
[2021-02-20] MEDS: carvediloL 6.25 MG TABLET PO SCH (08:19)
[2021-02-20] MEDS: prednisoLONE ACETATE 1% OPH SUSP 5 ML BOTTLE RIGHT EYE SCH (08:21)
[2021-02-20] MEDS: INSULIN LISPRO 100 UNIT/ML SUBCUT SCH (10:08)
[2021-02-20] MEDS: SODIUM CHLORIDE 0.9% 1,000 ML IV SCH (10:09)
== END 2021-02-20 11:16 | disposition home or self-care (01) | DRG 638 ==
LOC: N.ED 17:19 → N.EDINP 21:15 → SUATTDRO 21:15 → N.ICU 23:29
PROVIDERS: ADMIT Family Medicine; ATTEND Family Medicine